=== PATIENT | male | born 1965 | race Caucasian/White ===

== ENCOUNTER 2018-06-01 02:21 | Outpatient (CLI) | payer BC, SELFPAY ==
--- NOTE | 2018-06-22 09:34 | ZIOP_ITS ---
ZIO Patch Report DATE OF DICTATION June 22, 2018 STUDY INDICATION Paroxysmal atrial fibrillation. REQUESTING PROVIDER Maco Santana D.O. FINDINGS The patient was monitored for 14 days. COMMENTS The patient was in atrial fibrillation throughout, average heart rate 117 beats per minute, andres 46 to 194 beats per minute. There were no pauses greater than 3 seconds. There was no higher degree heart block. There were 35 patient events. All events correlated with atrial fibrillation with heart rates between 64 and 172 beats per minute. FINAL INTERPRETATION Atrial fibrillation with rapid ventricular response, symptomatic. Jaron Vargas M.D. EFREN/reinaldo T - 06/22/2018
== END 2018-06-01 02:41 ==
PROVIDERS: PCP Emergency Medicine; Visit Provider Emergency Medicine
DX: I47.2 Ventricular tachycardia (principal)
CPT/HCPCS: 93225

== ENCOUNTER 2019-05-18 06:11 | Inpatient (IN) | payer BC, SELFPAY ==
[2019-05-18] VITALS (81 sets, daily range): BP systolic 99–167; BP diastolic 56–94; PULSE 41–146; RESP 11–53; TEMP 36.7–37.2; O2SAT 94–100
[2019-05-18] MEDS: dilTIAZem 25 MG/5 ML VIAL 10 MG IVP ×2 (06:53→11:35)
[2019-05-18] MEDS: Normal Saline 1,000 ML 1000 ML IV (06:54)
[2019-05-18 06:56] LABS: HCT 50.1 % (40.0-50.0); HGB 17.3 g/dL (13.5-17.5); Lymphocytes % 27.9; Mean Corp. HGB Concentration 34.5 g/dL (32.0-36.0); Mean Corpuscular Hemoglobin 31.7 pg (27.0-33.0); Mean Corpuscular Volume 91.8 fL (80-95); Mean Platelet Volume 10.1 fL (8.0-11.0); Neutrophils % 63.3; Platelet Count 284 x1000/uL (130-400); RBC 5.46 m/cumm (4.50-6.00); RBC Distribution Width 13.5 % (11.8-14.1); White Blood Cell Count 7.64 k/cumm (4.4-10.8)
--- NOTE | 2019-05-18 06:56 | W.ED.GENAD ---
Discharge Plan Disposition Patient Disposition: [facility] INPATIENT Condition: Stable Discharge Details Chief Complaint: Dizzy/Sync Clinical Impression: Rapid atrial fibrillation Admit Date/Time: 05/18/19 11:43 Admit Provider: Zeke Marin Attending Provider: Zeke Marin Primary Care Provider: Maco Santana ED Provider: Shayne Bales Discharge Data Discharge Date/Time-TO BE ENTERED AT DEPARTURE: 05/18/19 14:20 Medical Decision Making <Frank Redd MD - Last Filed: 05/18/19 19:56> Patient arrives status post syncopal event in rapid A. fib. He has had rates as high as 150 here. He has had rates at 80 as well. He has never had syncope prior. He is status post ablation on the . IV in place, will give a liter bolus. He typically takes his diltiazem long-acting at 10 AM. We will give him 10 mg IV and give him his morning dose of oral Cardizem here. He denies striking his head but he had syncope and found himself on the floor when he came to. He is on Xarelto. Will obtain head CT. Complains of shortness of breath but has normal respiratory rate and pulse oximetry. Will obtain chest x-ray. He is on Xarelto doubt PE. 7:45 - Labs are unremarkable. Potassium just a little low. Replaced orally. Head CT is negative. CXR with some peribronchial cuffing otherwise normal. Heart rate mostly below 100 but just go the oral diltiaizem. Will sign over to Dr. Bales for follow up troponin as well as to contact Dr. Liz after 8 am when office opens. Medical Records Medical records reviewed: Yes I reviewed the patient's medical records. Lab Data Lab results reviewed: Yes I reviewed the patient's lab results. ECG Data Attestation: I personally reviewed and interpreted this ECG (s) as follows: Prior ECG tracings: available for review Interpretation: Atrial fibrillation at a rate of 112. Left axis. Normal intervals. Nonspecific ST changes. Unchanged from previous. <Shayne Bales MD - Last Filed: 05/18/19 15:18> Received signout from Dr. Redd. Please see his note regarding initial presentation, exam, plan of care. Patient with persistently elevated heart rate, requiring ongoing ministration of diltiazem. Repeat troponin was negative. I discussed the case with Dr. Seo, at the [facility], on-call for Dr. Liz. He agrees with ongoing parenteral diltiazem for rate control, may consider adding beta-connie if needed. He states that the chest discomfort is likely due to mild pericarditis secondary to recent procedure and that the patient benefit from administration of Toradol. We will admit for further rate control. HPI <Frank Redd MD - Last Filed: 05/18/19 19:56> General Date/Time Provider Initiated Documentation: 05/18/19 06:32. Limitations to Documentation: no limitations. Information obtained by: patient, family, RN notes reviewed and old records reviewed. HPI Narrative: Patient presents to ED after syncopal event this morning. Patient has history of atrial fibrillation. He underwent a second ablation on the of this month. He has had short periods of A. fib since the ablation. Last night he went back into atrial fibrillation and remained there. He eventually was able to fall asleep. He got up early this morning to go to the bathroom. He was urinating when he became very dizzy, lightheaded, nauseated. He was able to sit down on the toilet but subsequently passed out and woke up on the floor. He has been experiencing some chest discomfort since the ablation. Does not really think it worse or different. He did feel short of breath and continues to feel a little short of breath to some degree since this morning. He has noticed a little bit of tingling in the left arm but not really pain per se. He denies headache. He does not think he struck his head when he fell off the toilet but is not sure. He has no neck pain. He is been eating and drinking fine. He has had no vomiting. There has been no fever. He has had atrial fibrillation for the last 5 years on and off. He has undergone 2 ablations with the second one being on the . He has never had syncope in relation to A. fib previously. They continued him on his diltiazem and Xarelto status post ablation. Related Data Home Medications Medication Instructions Recorded Confirmed hjhxhfvt-rwei-hxqyza-hyalur ac 2 cap PO DAILY cap 02/15/13 05/18/19 multivitamin 1 ea PO DAILY tab 02/15/13 05/18/19 rivaroxaban [Xarelto] 20 mg PO DAILY tab-cap NS 04/01/18 05/18/19 diltiazem HCl 240 mg PO DAILY 05/18/19 05/18/19 pantoprazole 40 mg PO DAILY 05/18/19 05/18/19 Allergies Allergy/AdvReac Type Severity Reaction Status Date / Time atorvastatin calcium AdvReac Unknown Myalgias Verified 05/18/19 06:28 [From Lipitor] WALNUT Allergy Unknown Uncoded 05/18/19 06:28 General Stated Complaint: Dizzy/Sync GEORGE: 2 Review of Systems <Frank Redd MD - Last Filed: 05/18/19 19:56> Review of Systems Narrative: 06/12 Review of Systems completed and is negative except as stated above in HPI (Systems reviewed: Const, Eyes, ENT, Resp, CV, GI, , MSK, Skin, Neuro) PFSH <Frank Redd MD - Last Filed: 05/18/19 19:56> Medical History Atrial fibrillation (Chronic) Colon polyps GERD (gastroesophageal reflux disease) Hemorrhoids Hyperlipidemia Hypertension Metabolic syndrome Obesity (BMI 30-39.9) Surgical History Colonoscopy - IV Sedation 2001, 2007-[facility] S/P ablation of atrial fibrillation (Acute) x2 S/P ORIF (open reduction internal fixation) fracture (Acute) Tonsillectomy 208 n/l Family History Mother Essential hypertension Neoplasm LIVER Father Diabetes Brother No problems noted. Brother No problems noted. Grandfather Neoplasm Grandmother No problems noted. Son Depression Social History Smoking/Tobacco Use Status: Former Tobacco Use Alcohol Intake: current Alcohol Intake frequency: holidays/special occasions only Alcohol type: beer Drug use: Never Substance use type: does not use Do you feel safe at home: Yes Do you feel safe in your relationship?: Yes Exam <Frank Redd MD - Last Filed: 05/18/19 19:56> Narrative Exam Narrative: Vitals: Afebrile. Tachycardic but normal blood pressure and normal pulse oximetry on room air. Const: WDWN male in NAD. HEENT: NC/AT. Normal facial exam. Eyes: Normal conjunctiva and sclera. Neck: Supple. Trachea midline. Normal ROM. Lungs: Normal respiratory effort. Lungs are clear. Cor: Irr/Irr without murmur/gallop, tachy. Good radial pulses. GI: Soft. NT/ND. No guarding or rebound. Neuro: A+O x 3. CN grossly in tact. Normal strength, sensation, mental status, speech. Ext: No C/C/E. No deformity or tenderness. Skin: Warm and dry without rash. Course <Frank Redd MD - Last Filed: 05/18/19 19:56> Vital Signs Vital signs: Vital Signs Respiratory Rate 14 05/18/19 06:08 Blood Pressure 112/94 H 05/18/19 06:08 Pulse Oximetry 100 05/18/19 06:08 Pulse 105 H 05/18/19 06:53 Pulse 82 05/18/19 06:20 Respiratory Rate 13 05/18/19 06:20 Respiratory Effort Short of Breath 05/18/19 06:33 Respiratory Depth Normal 05/18/19 06:33 Respiratory Pattern Normal 05/18/19 06:33 Blood Pressure 130/85 05/18/19 06:53 Blood Pressure Mean 98 05/18/19 06:08 Blood Pressure Position Supine 05/18/19 06:14 Pulse Oximetry 99 05/18/19 06:20 Oxygen Delivery Method Room Air 05/18/19 06:14 Oxygen Flow Rate 0 05/18/19 06:14 Pain Level 5 05/18/19 06:14 Sign Out <Frank Redd MD - Last Filed: 05/18/19 19:56> Sign Out Data: Sign Out Comment: pending second troponin and discussion with EPS buyer tobacco head, Dr. Shalonda Jacques updated by Frank Redd MD at 05/18/19 07:46
[2019-05-18 06:57] LABS: Abs Immature Grans 0.03 k/cumm (0.0-0.09); Absolute Basophil Count 0.03 k/cumm (0.0-0.2); Absolute Eosinophil Count 0.09 k/cumm (0.0-0.7); Absolute Lymphocyte Count 2.13 k/cumm (1.2-3.4); Absolute Monocyte Count 0.52 k/cumm (0.11-0.7); Absolute Neutrophil Count 4.84 k/cumm (1.2-6.7); Basophils % 0.4; Eosinophils % 1.2; Immature Grans % 0.4; Monocytes % 6.8
--- NOTE | 2019-05-18 06:58 | DI.RAD_ITS ---
EXAM: XR CHEST 2V PA LATERAL INDICATION: SOB. COMPARISON: CHEST 2 VIEWS PA,LAT from 02/24/2017 TECHNIQUE: 2D digital imaging was performed. FINDINGS: The lungs are well expanded and free of infiltrate. There is no evidence of a pleural effusion. The heart is within normal limits in size. The hilar structures, mediastinum and tracheal air column are intact. IMPRESSION: No evidence of acute cardiopulmonary disease.
[2019-05-18] MEDS: dilTIAZem CD 120 MG CAPCR 240 MG PO (07:08)
[2019-05-18 07:13] LABS: ALT 44 U/L (16-63); AST 19 U/L (15-37); Albumin 3.7 g/dL (3.4-5.0); Alkaline Phosphatase 79 U/L (46-116); Anion Gap 11.5 mmol/L (3-11); BUN 20 mg/dL (7-18); Bilirubin, Total 0.9 mg/dL (0.2-1.0); CO2 25.5 mmol/L (21.0-32.0); CREATININE 0.99 mg/dL (0.70-1.30); Calcium 8.8 mg/dL (8.5-10.1); Chloride 106 mmol/L (98-107); Glucose 131 mg/dL (70-100); Magnesium 2.1 mg/dL (1.8-2.4); Potassium 3.4 mmol/L (3.5-5.1); Sodium 143 mmol/L (136-145); Total Protein 7.1 g/dL (6.4-8.2)
--- NOTE | 2019-05-18 07:15 | DI.CT_ITS ---
EXAM: CT HEAD WO CLINICAL HISTORY: Syncope, ON XARELTO TECHNIQUE: A noncontrast enhanced cranial CT was performed. COMPARISON: No exams were available for comparison FINDINGS: There is no evidence of an intra or extra-axial hemorrhage. There is no evidence of a mass. The olegario tricles are normal. There is no skull fracture. Paranasal sinuses are intact. There is no evidence o f a mastoid effusion. IMPRESSION: No acute intracranial abnormality is demonstrated.
[2019-05-18 07:16] LABS: Troponin I < 0.05 ng/mL (0.00-0.06)
--- NOTE | 2019-05-18 07:24 | DI.VRAD_ITS ---
PROCEDURE INFORMATION: Exam: CT Head Without Contrast Exam date and time: 05/18/2019 7:13 AM Clinical history: 53 years old, male; Syncope and collapse; Additional info: Syncope. PT came to on the floor TECHNIQUE: Imaging protocol: Computed tomography of the head without contrast. Radiation optimization: All CT scans at this facility use at least one of these dose optimization techniques: automated exposure control; mA and/or kV adjustment per patient size (includes targeted exams where dose is matched to clinical indication); or iterative reconstruction. COMPARISON: No relevant prior studies available. FINDINGS: Brain: Normal. No hemorrhage. Unremarkable white matter. No mass effect. Ventricles: Normal. No ventriculomegaly. Bones/joints: Unremarkable. No acute fracture. Sinuses: Visualized sinuses are unremarkable. No fluid levels. Mastoid air cells: Visualized mastoid air cells are well aerated. Soft tissues: Unremarkable. IMPRESSION: No acute intracranial abnormality. Dictated and Authenticated by: Elkin Valenzuela MD. Ordering:CLOTILDE Marie MD
--- NOTE | 2019-05-18 07:28 | DI.VRAD_ITS ---
PROCEDURE INFORMATION: Exam: XR Chest, 2 Views Exam date and time: 05/18/2019 6:59 AM Clinical history: 53 years old, male; Shortness of breath; Prior surgery; Surgery date: <1 month; Surgery type: Ablation; Patient HX: PT; Additional info: Syncope. PT came to on the floor, in active afib TECHNIQUE: Imaging protocol: XR of the chest Views: 2 views. COMPARISON: CR CHEST 2 VIEWS PA,LAT 02/24/2017 10:20 AM FINDINGS: Lungs: Peribronchial cuffing is present which is nonspecific, and which may reflect acute or chronic bronchial inflammation. Alternatively, this may reflect an element of reactive airways disease. Pleural space: Unremarkable. No pleural effusion. No pneumothorax. Heart/Mediastinum: Unremarkable. No cardiomegaly. Bones/joints: Unremarkable. IMPRESSION: Nonspecific peribronchial cuffing. Dictated and Authenticated by: Elkin Valenzuela MD. Ordering:CLOTILDE Marie MD
[2019-05-18] MEDS: Potassium Chloride 20 MEQ TABCR PO (07:32)
[2019-05-18] MEDS: dilTIAZem 25 MG/5 ML VIAL 5 MG IVP (09:00)
[2019-05-18 09:55] LABS: Troponin I < 0.05 ng/mL (0.00-0.06)
[2019-05-18] MEDS: dilTIAZem 125 MG in Normal Saline 100 ML IV (11:56)
[2019-05-18] MEDS: Ketorolac 15 MG/ML VIAL IVP (12:10)
[2019-05-18] MEDS: LORazepam 2 MG/ML VIAL 1 MG IVP (14:14)
--- NOTE | 2019-05-18 14:47 | DI.CT_ITS ---
EXAM: CT ABDOMEN WO/W CLINICAL HISTORY: Evaluation of Adrenal Adenoma. TECHNIQUE: CT EXAMINATION THE ABDOMEN WAS PERFORMED PRIOR TO AND FOLLOWING INTRAVENOUS INFUSION OF 1 00 CC OF OMNIPAQUE 350. COMPARISON: No exams were available for comparison FINDINGS: IMAGES OBTAINED THROUGH THE LUNG BASES ARE UNREMARKABLE. LIVER AND SPLEEN APPEAR NORMAL. GALLBLADDE R AND BILE DUCTS ARE CT NORMAL. PANCREAS APPEARS NORMAL. ABDOMINAL AORTA IS OF NORMAL DIAMETER. FRENCH OR BRANCH VESSELS APPEAR NORMAL. TINY FAT-CONTAINING UMBILICAL HERNIA NOTED. NO ABDOMINAL OR PELVIC ADENOPATHY. INCIDENTAL SMALL POSTERIOR LEFT RENAL CYST NOTED. OTHERWISE THE KIDNEYS ARE UNREMARKABLE. LEFT ADRE NALS UNREMARKABLE. THERE IS 3 CM IN DIAMETER WELL-CIRCUMSCRIBED ROUNDED RIGHT ADRENAL MASS. THIS HAS A MEAN ATTENUATION OF APPROXIMATELY -10 HOUNSFIELD UNITS ON NONCONTRAST EXAMINATION AND SHOWS MINIMAL HOMOGENEOUS POST CONTRAST ENHANCEMENT. THE FINDINGS DESCRIBED ARE CONSISTENT WITH ADRENAL ADENOMA. NO OTHER SIGNI FICANT FINDINGS. IMPRESSION: FINDINGS CONSISTENT WITH 3 CM RIGHT ADRENAL ADENOMA. NO ADDITIONAL FINDINGS
[2019-05-18] MEDS: Omnipaque 350 MG/ML 100 ML BTL IJ (14:48)
--- NOTE | 2019-05-18 15:56 | W.PM.HP.N ---
Date of service: 05/18/19 Time of Service: 15:58 Assessment and Plan Assessment and plan (1) Paroxysmal atrial fibrillation: Status: Chronic Assessment and plan: Recurrent, paroxysmal AFib, despite 2 prior ablations with last occuring on 05/10. Rate has been difficult to control. - Admit to ICU and maintain on Dilt gtt, administer oral Cardizem, and consider addition of BB with wean of drip as able. - Currently on anticoagulation with Rivaroxaban. - Check urinalysis and TSH. CXR negative for acute pathology, and patient not hypoxic. Also denies stimulants. - Mention of adrenal adenoma - very likely benign incidentiloma on prior imaging. However, given current symptoms and recurrent nature of patient's Afib despite attempts at ablation, recommend further work-up as below. - Given obesity and body habitus strongly urged patient to lose weight and consider outpatient sleep study as well. (2) Adrenal adenoma: Status: Acute Assessment and plan: Due to current symptoms of difficult to control and recurrent Afib, and given patient's relative young age, will attempt to rule out a functioning adenoma that may be responsible for patient's symptoms. - Rule out Primary Hypoaldo state - patient does have some mild hypokalemia and HTN, but neither significant. Will check plasma renin and Aldosterone. - Consider Diagnosis of Pheochromocytoma with serum Fractionated Metanephrines. - Clinically does not appear Cushingoid, but does have a history of HTN and obesity, will however check 24 hour Urinary free cortisol, and consider dexamethasone suppression test. (3) DVT prophylaxis: Status: Acute Assessment and plan: On chronic anticoagulation with Rivaroxaban. Continue PPI for GI prophylaxis as well. History of Present Illness History of Present Illness Chief Complaint: Recurrent Afib, Syncope Narrative: Pleasant 53 year old man with a prior history of recurrent Paroxysmal Afib, s/p ablation X2, being admitted from [facility] Emergency Department on 05/18 with a diagnosis of Afib and Syncope. Mr. Peter has history of PAF on chronic anticoagulation and diagnosed 5 years ago. He reports that this has been difficult to control and symptomatic, especially at night. He has undergone 2 attempts at ablation, the first occuring in September of this year, and the next just last week at [facility] by Dr. Elkin Liz. The patient apparently had onset of symptoms of recurrent Afib at dinner time last night, but the discomfort abated somewhat. However, by bedtime he became uncomfortable and symptomatic again, and during his second trip to the bathroom to urinate he experienced a syncopal episode without injury - he reportedly sat down on the toilet, then slid off. Work-up in the ED was remarkable for Hypokalemia, but otherwise negative. CT of the head and CXR were also unremarkable. He was however found to be in AFib with RVR. The patient denies any CP or other discomfort currently. He was administered boluses of IV Cardizem, then administered his oral Dilt while in the ED, but without success. At that time he was referred for admission for further evaluation and treatment. The patient's other medical history includes mention of CAD, but with a negative reported C in 2000, GERD, Diverticulosis, Obesity, and HTN. There is also note of an Adrenal Adenoma by records. Review of Systems Review of Systems ROS Unobtainable: All systems reviewed & are unremarkable except as noted in HPI and below PFSH Medical History Atrial fibrillation (Chronic) Colon polyps GERD (gastroesophageal reflux disease) Hemorrhoids Hyperlipidemia Hypertension Metabolic syndrome Obesity (BMI 30-39.9) Surgical History Colonoscopy - IV Sedation 2001, 2007-Jesus Morse S/P ablation of atrial fibrillation (Acute) x2 S/P ORIF (open reduction internal fixation) fracture (Acute) Tonsillectomy 208 n/l Family History Mother Essential hypertension Neoplasm LIVER Father Diabetes Brother No problems noted. Brother No problems noted. Grandfather Neoplasm Grandmother No problems noted. Son Depression Social History Smoking/Tobacco Use Status: Former Tobacco Use Alcohol Intake: current Alcohol Intake frequency: holidays/special occasions only Alcohol type: beer Drug use: Never Substance use type: does not use Do you feel safe at home: Yes Do you feel safe in your relationship?: Yes Meds Home Medications and Allergies Home Medications Medication Instructions Recorded Confirmed Type bsmpqwon-hfoe-itttce-hyalur ac 2 cap PO DAILY cap 02/15/13 05/18/19 History multivitamin 1 ea PO DAILY tab 02/15/13 05/18/19 History rivaroxaban [Xarelto] 20 mg PO DAILY tab-cap NS 04/01/18 05/18/19 History diltiazem HCl 240 mg PO DAILY 05/18/19 05/18/19 History pantoprazole 40 mg PO DAILY 05/18/19 05/18/19 History Allergies Allergy/AdvReac Type Severity Reaction Status Date / Time atorvastatin calcium AdvReac Unknown Myalgias Verified 05/18/19 06:28 [From Lipitor] WALNUT Allergy Unknown Uncoded 05/18/19 06:28 Exam Narrative Exam Narrative: General: Patient appears comfortable, AAOX3, NAD Neck: Supple CV: Irregular and tachycardic, S1S2, No rubs, murmurs, or gallops. Pulmonary: Clear to auscultation bilaterally, no crackles, wheezing, or rhonchi Abdomen: + Bowel Sounds, soft, nontender, nondistended Vascular: No lower extremity edema Neurologic: CN II-XII grossly intact. No focal deficits. Psych: Normal mood and affect. Results Imaging Abdomen CT scan report/results: report reviewed and image reviewed Additional studies: Exam(s) a CT:CT abdomen wo/w EXAM: CT ABDOMEN WO/W CLINICAL HISTORY: Evaluation of Adrenal Adenoma. TECHNIQUE: CT EXAMINATION THE ABDOMEN WAS PERFORMED PRIOR TO AND FOLLOWING INTRAVENOUS INFUSION OF 100 CC OF OMNIPAQUE 350. COMPARISON: No exams were available for comparison FINDINGS: IMAGES OBTAINED THROUGH THE LUNG BASES ARE UNREMARKABLE. LIVER AND SPLEEN APPEAR NORMAL. GALLBLADDER AND BILE DUCTS ARE CT NORMAL. PANCREAS APPEARS NORMAL. ABDOMINAL AORTA IS OF NORMAL DIAMETER. MAJOR BRANCH VESSELS APPEAR NORMAL. TINY FAT-CONTAINING UMBILICAL HERNIA NOTED. NO ABDOMINAL OR PELVIC ADENOPATHY. INCIDENTAL SMALL POSTERIOR LEFT RENAL CYST NOTED. OTHERWISE THE KIDNEYS ARE UNREMARKABLE. LEFT ADRENALS UNREMARKABLE. THERE IS 3 CM IN DIAMETER WELL-CIRCUMSCRIBED ROUNDED RIGHT ADRENAL MASS. THIS HAS A MEAN ATTENUATION OF APPROXIMATELY -10 HOUNSFIELD UNITS ON NONCONTRAST EXAMINATION AND SHOWS MINIMAL HOMOGENEOUS POST CONTRAST ENHANCEMENT. THE FINDINGS DESCRIBED ARE CONSISTENT WITH ADRENAL ADENOMA. NO OTHER SIGNIFICANT FINDINGS. IMPRESSION: FINDINGS CONSISTENT WITH 3 CM RIGHT ADRENAL ADENOMA. NO ADDITIONAL FINDINGS --------- Exam(s) a RAD:XR chest 2V PA & lateral EXAM: XR CHEST 2V PA LATERAL INDICATION: SOB. COMPARISON: CHEST 2 VIEWS PA,LAT from 02/24/2017 TECHNIQUE: 2D digital imaging was performed. FINDINGS: The lungs are well expanded and free of infiltrate. There is no evidence of a pleural effusion. The heart is within normal limits in size. The hilar structures, mediastinum and tracheal air column are intact. IMPRESSION: No evidence of acute cardiopulmonary disease. --------- Exam(s) a CT:CT head wo EXAM: CT HEAD WO CLINICAL HISTORY: Syncope, ON XARELTO TECHNIQUE: A noncontrast enhanced cranial CT was performed. COMPARISON: No exams were available for comparison FINDINGS: There is no evidence of an intra or extra-axial hemorrhage. There is no evidence of a mass. The ventricles are normal. There is no skull fracture. Paranasal sinuses are intact. There is no evidence of a mastoid effusion. IMPRESSION: No acute intracranial abnormality is demonstrated. Labs Result diagrams: 05/18/19 06:31 05/18/19 06:31 Labs: Laboratory Results - last 24 hr 05/18/19 05/18/19 05/18/19 06:31 06:31 09:30 WBC 7.64 RBC 5.46 Hgb 17.3 Hct 50.1 H MCV 91.8 MCH 31.7 MCHC 34.5 RDW 13.5 Plt Count 284 MPV 10.1 Immature Gran % 0.4 Neutrophils % 63.3 Lymphocytes % 27.9 Monocytes % 6.8 Eosinophils % 1.2 Basophils % 0.4 Absolute Neutrophils 4.84 Absolute Lymphocytes 2.13 Absolute Monocytes 0.52 Absolute Eosinophils 0.09 Absolute Basophils 0.03 Sodium 143 Potassium 3.4 L Chloride 106 Carbon Dioxide 25.5 Anion Gap 11.5 H BUN 20 H Creatinine 0.99 Estimated GFR/1.73 m2 >= 60.00 Glucose 131 H Calcium 8.8 Magnesium 2.1 Total Bilirubin 0.9 AST 19 ALT 44 Alkaline Phosphatase 79 Troponin I < 0.05 < 0.05 Total Protein 7.1 Albumin 3.7 Ur Collection Duration Ur 24 Hour Volume Ur Creatinine Concen Ur Free Cortisol 24 Hr U Metanephrine/Creat U Normetanephrine/Creat U Tot Metanephri/Creat 05/18/19 05/18/19 15:30 15:30 WBC RBC Hgb Hct MCV MCH MCHC RDW Plt Count MPV Immature Gran % Neutrophils % Lymphocytes % Monocytes % Eosinophils % Basophils % Absolute Neutrophils Absolute Lymphocytes Absolute Monocytes Absolute Eosinophils Absolute Basophils Sodium Potassium Chloride Carbon Dioxide Anion Gap BUN Creatinine Estimated GFR/1.73 m2 Glucose Calcium Magnesium Total Bilirubin AST ALT Alkaline Phosphatase Troponin I Total Protein Albumin Ur Collection Duration Cancelled Ur 24 Hour Volume Cancelled Ur Creatinine Concen Cancelled Ur Free Cortisol 24 Hr Cancelled U Metanephrine/Creat Cancelled U Normetanephrine/Creat Cancelled U Tot Metanephri/Creat Cancelled Last Vital Signs Temp 36.8 C 05/18/19 15:20 Pulse 83 05/18/19 15:01 Resp 18 05/18/19 15:01 BP 117/87 05/18/19 15:01 Pulse Ox 98 05/18/19 15:01
[2019-05-18 16:07] LABS: TSH (W/Ref FT4) 1.72 uIU/mL (0.36-3.74)
[2019-05-18] MEDS: Potassium Chloride 20 MEQ TABCR 40 MEQ PO (16:08)
[2019-05-18 16:10] LABS: Troponin I < 0.05 ng/mL (0.00-0.06)
[2019-05-18] MEDS: Pantoprazole 40 MG TABCR PO (19:26)
[2019-05-18] MEDS: Rivaroxaban 10 MG TABLET 20 MG PO (19:26)
[2019-05-18 22:35] LABS: Troponin I < 0.05 ng/mL (0.00-0.06)
[2019-05-19] VITALS (50 sets, daily range): BP systolic 98–137; BP diastolic 47–106; PULSE 49–152; RESP 11–28; TEMP 35.8–36.8; O2SAT 96–98
[2019-05-19] MEDS: dilTIAZem 125 MG in Normal Saline 100 ML 7.5 MG IV (05:05)
[2019-05-19 07:12] LABS: Abs Immature Grans 0.02 k/cumm (0.0-0.09); Absolute Basophil Count 0.02 k/cumm (0.0-0.2); Absolute Eosinophil Count 0.11 k/cumm (0.0-0.7); Absolute Lymphocyte Count 1.61 k/cumm (1.2-3.4); Absolute Monocyte Count 0.57 k/cumm (0.11-0.7); Absolute Neutrophil Count 4.64 k/cumm (1.2-6.7); Basophils % 0.3; Eosinophils % 1.6; HCT 47.8 % (40.0-50.0); HGB 16.5 g/dL (13.5-17.5); Immature Grans % 0.3; Lymphocytes % 23.1; Mean Corp. HGB Concentration 34.5 g/dL (32.0-36.0); Mean Corpuscular Hemoglobin 31.9 pg (27.0-33.0); Mean Corpuscular Volume 92.3 fL (80-95); Mean Platelet Volume 9.9 fL (8.0-11.0); Monocytes % 8.2; Neutrophils % 66.5; Platelet Count 253 x1000/uL (130-400); RBC 5.18 m/cumm (4.50-6.00); RBC Distribution Width 13.5 % (11.8-14.1); White Blood Cell Count 6.97 k/cumm (4.4-10.8)
[2019-05-19 07:22] LABS: Anion Gap 10.6 mmol/L (3-11); BUN 11 mg/dL (7-18); CO2 25.4 mmol/L (21.0-32.0); CREATININE 0.87 mg/dL (0.70-1.30); Calcium 8.8 mg/dL (8.5-10.1); Chloride 108 mmol/L (98-107); Glucose 94 mg/dL (70-100); Magnesium 1.9 mg/dL (1.8-2.4); Potassium 3.7 mmol/L (3.5-5.1); Sodium 144 mmol/L (136-145)
[2019-05-19] MEDS: Glucosamine/Chondroitin CAP 2 CAP PO (08:57)
[2019-05-19] MEDS: dilTIAZem CD 120 MG CAPCR 240 MG PO (08:57)
[2019-05-19] MEDS: Multivitamin TAB 1 TAB PO (08:57)
--- NOTE | 2019-05-19 09:00 | MERGE_ITS ---
*[facility]* *[facility]* [address] [place] [address] Date of study: 05/19/2019 Transthoracic Echocardiography M-mode, complete 2D, complete spectral Doppler, and color Doppler *STUDY CONCLUSIONS* Impressions: The patient was in atrial fibrillation throughout study. This rhythm can interfere with accurate global and segmental wall motion analysis. Summary: 1. Left ventricle: The cavity size was normal. Wall thickness was increased in a pattern of moderate to severe LVH. Systolic function was at the lower limits of normal. The estimated ejection fraction was 50-55%. Wall motion was normal; there were no regional wall motion abnormalities. 2. Right ventricle: The cavity size was at the upper limits of normal. Systolic function was normal. 3. Left atrium: The atrium was severely dilated. 4. Inferior vena cava: The vessel was patent and normal in size. The respirophasic diameter changes were in the normal range (greater than or equal to 50%), consistent with normal central venous pressure. *PATIENT PRESENTATION* Height: 180.3cm (71in ) S/D Pressure: 109 / 47 Weight: 117kg (257.5lb ) BSA: 2.46m^2 Test start time: 09:15 AM. Test stop time: 10:10 AM. CONSULTING Zeke Marin ORDERING Zeke Marin REFERRING Zeke Marin PERFORMING [facility] PRODUCT DELIVERY SPECIALIST RT Christianne Lou)(AMI)ROSALINDA *PROCEDURE DATA* Procedure information: The patient was identified by two identifiers. This study was interpreted by [facility]. Pertinent images and digital data are archived for permanent storage and are available for subsequent review. Comparison was made to the study of 11/03/2016. Study status: Routine. Transthoracic echocardiography. M-mode, complete 2D, complete spectral Doppler, and color Doppler. A Transthoracic Echocardiogram was performed. Scanning was performed from the parasternal, apical, subcostal, and suprasternal notch acoustic windows. Images were obtained using an [id number] cardiac ultrasound machine. Image quality was adequate. Study completion: The patient tolerated the procedure well. There were no complications. History: PMH: Persistent recurrent afib. *CARDIAC ANATOMY* Left ventricle: The cavity size was normal. Wall thickness was increased in a pattern of moderate to severe LVH. Systolic function was at the lower limits of normal. The estimated ejection fraction was 50-55%. Wall motion was normal; there were no regional wall motion abnormalities. Aortic valve: Trileaflet; mildly thickened leaflets. Mobility was not restricted. Doppler: Transvalvular velocity was within the normal range. There was no stenosis. There was no significant regurgitation. VTI ratio of LVOT to aortic valve: 0.94. Valve area (VTI): 3.9cm^2. Indexed valve area (VTI): 1.6cm^2/m^2. Peak velocity ratio of LVOT to aortic valve: 0.84. Valve area (Vmax): 3.5cm^2. Indexed valve area (Vmax): 1.4cm^2/m^2. Mean velocity ratio of LVOT to aortic valve: 0.87. Valve area (Vmean): 3.6cm^2. Indexed valve area (Vmean): 1.5cm^2/m^2. Mean gradient (S): 3.6mm Hg. Peak gradient (S): 5.6mm Hg. Aorta: Aortic root: The aortic root was mildly dilated. Ascending aorta: The ascending aorta was normal in size. Mitral valve: Structurally normal valve. Mobility was not restricted. Doppler: Transvalvular velocity was within the normal range. There was no evidence for stenosis. There was trivial regurgitation. Peak gradient (D): 3.4mm Hg. Left atrium: The atrium was severely dilated. Right ventricle: The cavity size was at the upper limits of normal. Systolic function was normal. Pulmonic valve: Poorly visualized. Doppler: Transvalvular velocity was within the normal range. There was no evidence for stenosis. There was no significant regurgitation. Tricuspid valve: Structurally normal valve. Doppler: Transvalvular velocity was within the normal range. There was no evidence for stenosis. There was trivial regurgitation. Pulmonary artery: Poorly visualized. Systolic pressure could not be accurately estimated. Right atrium: The atrium was dilated. Pericardium: There was no significant pericardial effusion. Systemic veins: Inferior vena cava: Well visualized. The vessel was patent and normal in size. The respirophasic diameter changes were in the normal range (greater than or equal to 50%), consistent with normal central venous pressure. Baseline ECG: Atrial fibrillation. Measurements Left ventricle Value 11/03/2016 Reference LV ID, ED, PLAX 5.5 cm 5.7 3.5 - 6.0 LV ID, ES, PLAX (H) 4.2 cm 4.0 2.1 - 4.0 LV PW thickness, ED, PLAX 1.4 cm 1.5 LV end-diastolic volume, 148 ml 1-p A2C LV ejection fraction, 1-p 50 % 52 A2C LV end-diastolic volume, 160 ml 1-p A4C LV ejection fraction, 1-p 49 % 67 A4C Ventricular septum Value 11/03/2016 Reference IVS thickness, ED, PLAX 1.7 cm 1.5 LVOT Value 11/03/2016 Reference LVOT ID, A-P 2.3 cm 2.3 LVOT area 4.2 cm^2 4 LVOT peak velocity, S 1 m/sec 0.91 LVOT mean velocity, S 0.75 m/sec LVOT VTI, S 16.0 cm 22.5 LVOT peak gradient, S 4 mm Hg LVOT mean gradient, S 2.6 mm Hg 1.9 Stroke volume (SV), LVOT 67 ml DP Stroke index (SV/bsa), 27 ml/m^2 LVOT DP Aortic valve Value 11/03/2016 Reference Aortic valve peak 1.2 m/sec velocity, S Aortic valve mean 0.9 m/sec velocity, S Aortic valve VTI, S 17.0 cm Aortic mean gradient, S 3.6 mm Hg Aortic peak gradient, S 5.6 mm Hg VTI ratio, LVOT/AV 0.94 Aortic valve area, VTI 3.9 cm^2 4.5 Velocity ratio, peak, 0.84 LVOT/AV Aortic valve area, peak 3.5 cm^2 3.7 velocity Velocity ratio, mean, 0.87 LVOT/AV Aortic valve area, mean 3.6 cm^2 velocity Aortic valve area/bsa, 1.5 cm^2/m^2 mean velocity Aorta Value 11/03/2016 Reference Aortic root ID, ED 3.9 cm 4.0 Ascending aorta ID, A-P, S 3.5 cm Left atrium Value 11/03/2016 Reference LA ID, A-P, ES 5.0 cm LA ID/bsa, A-P 2.0 cm/m^2 <=2.2 LA volume/bsa, ES, 1-p A4C 63 ml/m^2 60 LA volume, ES, 2-p 128 ml LA volume/bsa, ES, 2-p 52 ml/m^2 LA/aortic root ratio 1.26 1.42 Mitral valve Value 11/03/2016 Reference Mitral E-wave peak 0.92 m/sec 0.92 velocity Mitral peak gradient, D 3.4 mm Hg Tricuspid valve Value 11/03/2016 Reference Tricuspid regurg peak 2.2 m/sec 2.5 velocity Tricuspid peak RV-RA 19.4 mm Hg 25.2 gradient Right atrium Value 11/03/2016 Reference RA area, ES, A4C (H) 20 cm^2 27 8.3 - 19.5 Legend: (L) and (H) robbin values outside specified reference range. I have personally reviewed the images and have reviewed and edited the reported findings. Electronically signed by Nancy Douglas 05/19/2019 14:15
[2019-05-19] MEDS: Magnesium Oxide 400 MG TAB PO (11:07)
[2019-05-19] MEDS: POTASSIUM CHLORIDE 20 MEQ, POTASSIUM CHLORIDE 10 MEQ 30 MEQ PO (11:07)
--- NOTE | 2019-05-19 11:57 | PGE_ITS ---
Date of Service Date of service: 05/19/19 Time of Service: 11:57 Assessment and Plan Assessment and plan (1) Paroxysmal atrial fibrillation: Status: Chronic Assessment and plan: Recurrent, paroxysmal AFib, despite 2 prior ablations with last occuring on 05/10. Rate has been difficult to control. - Currently on anticoagulation with Rivaroxaban. - Appears to be improved on Dilt gtt. Continue home regimen of oral Cardizem, and initiate / titrate BB with plans to wean off drip as able. - Urinalysis ordered and pending. TSH normal. CXR negative for acute pathology, and patient not hypoxic. Also denies stimulants. - Mention of adrenal adenoma - very likely benign incidentiloma on prior imaging. However, given current symptoms and recurrent nature of patient's Afib despite attempts at ablation, recommend further work-up as below. - Given obesity and body habitus strongly urged patient to lose weight and consider outpatient sleep study as well. (2) Adrenal adenoma: Status: Acute Assessment and plan: Due to current symptoms of difficult to control and recurrent Afib, and given patient's relative young age, will attempt to rule out a functioning adenoma that may be responsible for patient's symptoms. - Rule out Primary Hypoaldo state - patient does have some mild hypokalemia and HTN, but neither significant. Plasma renin and Aldosterone pending. - Consider Diagnosis of Pheochromocytoma with serum Fractionated Metanephrines. - Clinically does not appear Cushingoid, but does have a history of HTN and obesity, will however check 24 hour Urinary free cortisol, and consider dexamethasone suppression test. (3) DVT prophylaxis: Status: Acute Assessment and plan: On chronic anticoagulation with Rivaroxaban. Continue PPI for GI prophylaxis as well. Subjective Subjective Interval history since last seen: Oswaldo 53 year old man with a prior history of recurrent Paroxysmal Afib, s/p ablation X2, admitted from [facility] Emergency Department on 05/18 with a diagnosis of Afib and Syncope. Mr. Peter has history of PAF on chronic anticoagulation, diagnosed 5 years ago. He reports that this has been difficult to control and symptomatic, especially at night. He has undergone 2 attempts at ablation, the first occuring in September of this year, and the next just last week at [facility] by Dr. Elkin Liz. The patient apparently had onset of symptoms of recurrent Afib at dinner time on the night of his admission, but the discomfort abated somewhat. However, by bedtime he became uncomfortable and symptomatic again, and during his second trip to the bathroom to urinate he experienced a syncopal episode without injury - he reportedly sat down on the toilet, then slid off. Work-up in the ED was remarkable for Hypokalemia, but otherwise negative. CT of the head and CXR were also unremarkable. He was however found to be in AFib with RVR, with a rate in the 150's. The patient denied any CP or other discomfort at time of exam. He was administered boluses of IV Cardizem, then administered his oral Dilt while in the ED, but without success. At that time he was initiated on cardizem gtt, and referred for admission for further evaluation and treatment. The patient's other medical history includes mention of CAD, but with a negative reported LHC in 2000, GERD, Diverticulosis, Obesity, and HTN. There is also note of an Adrenal Adenoma by records. This morning Mr. Peter reports improvement in his symptoms overall, and is rate controlled at rest by remains tachycardic with movement. He remains on a cardizem drip. No overnight events reported. Remains afebrile. Exam Narrative Exam Narrative: General: Patient appears comfortable, AAOX3, NAD Neck: Supple CV: Irregular and borderline tachycardic, S1S2, No rubs, murmurs, or gallops. Pulmonary: Clear to auscultation bilaterally, no crackles, wheezing, or rhonchi Abdomen: + Bowel Sounds, soft, nontender, nondistended Vascular: No lower extremity edema Psych: Normal mood and affect. Objective Objective Clinical Data: Abnormal lab results 05/19/19 Range/Units 06:50 Chloride 108 H (98-107) mmol/L Vital Signs Temperature 35.9 C L 05/19/19 09:00 Temperature Source Temporal Artery Scan 05/19/19 09:00 Pulse 100 H 05/19/19 09:40 Pulse 99 H 05/19/19 07:40 Respiratory Rate 20 05/19/19 09:00 Respiratory Effort Non-Labored 05/19/19 08:50 Respiratory Depth Normal 05/19/19 08:50 Respiratory Pattern Normal 05/19/19 08:50 Blood Pressure 136/90 05/19/19 11:00 Blood Pressure Mean 64 05/19/19 06:02 Blood Pressure Position Sitting 05/19/19 08:50 Pulse Oximetry 96 05/19/19 09:00 Oxygen Delivery Method Room Air 05/19/19 11:00 Oxygen Flow Rate 0 05/19/19 11:00 Pain Level 0 05/19/19 08:50 Comment 05/19/19 09:40 Intake & Output 05/18/19 05/18/19 05/19/19 11:59 23:59 11:59 Intake Total 1501.292 / 1501.292 521.500 / 521.500 Output Total 1270 / 1270 2175 / 2175 Balance 231.292 / 231.292 -1653.500 / -1653.500 Weight 117.027 kg 117.027 kg 118.4 kg Intake: IV 1051.292 / 1051.292 121.500 / 121.500 Oral 450 / 450 400 / 400 Output: Urine 1270 / 1270 2175 / 2175 Other: Urine Color Yellow Yellow Urine Appearance Clear Clear Urine Odor Normal Normal Comment Voiding to urinal for 24 hr catch. Stool Occult Blood Negative Negative Stool Size Moderate Large Stool Characteristics Soft Soft Formed Formed Brown Laboratory Results WBC 6.97 k/cumm (4.4-10.8) 05/19/19 06:50 RBC 5.18 m/cumm (4.50-6.00) 05/19/19 06:50 Hgb 16.5 g/dL (13.5-17.5) 05/19/19 06:50 Hct 47.8 % (40.0-50.0) 05/19/19 06:50 MCV 92.3 fL (80-95) 05/19/19 06:50 MCH 31.9 pg (27.0-33.0) 05/19/19 06:50 MCHC 34.5 g/dL (32.0-36.0) 05/19/19 06:50 RDW 13.5 % (11.8-14.1) 05/19/19 06:50 Plt Count 253 x1000/uL (130-400) 05/19/19 06:50 MPV 9.9 fL (8.0-11.0) 05/19/19 06:50 Immature Gran % 0.3 05/19/19 06:50 Neutrophils % 66.5 05/19/19 06:50 Lymphocytes % 23.1 05/19/19 06:50 Monocytes % 8.2 05/19/19 06:50 Eosinophils % 1.6 05/19/19 06:50 Basophils % 0.3 05/19/19 06:50 Absolute Neutrophils 4.64 k/cumm (1.2-6.7) 05/19/19 06:50 Absolute Lymphocytes 1.61 k/cumm (1.2-3.4) 05/19/19 06:50 Absolute Monocytes 0.57 k/cumm (0.11-0.7) 05/19/19 06:50 Absolute Eosinophils 0.11 k/cumm (0.0-0.7) 05/19/19 06:50 Absolute Basophils 0.02 k/cumm (0.0-0.2) 05/19/19 06:50 Sodium 144 mmol/L (136-145) 05/19/19 06:50 Potassium 3.7 mmol/L (3.5-5.1) 05/19/19 06:50 Chloride 108 mmol/L (98-107) H 05/19/19 06:50 Carbon Dioxide 25.4 mmol/L (21.0-32.0) 05/19/19 06:50 Anion Gap 10.6 mmol/L (3-11) 05/19/19 06:50 BUN 11 mg/dL (7-18) D 05/19/19 06:50 Creatinine 0.87 mg/dL (0.70-1.30) 05/19/19 06:50 Estimated GFR/1.73 m2 >= 60.00 (mL/min/1.73m2) 05/19/19 06:50 Glucose 94 mg/dL (70-100) 05/19/19 06:50 Calcium 8.8 mg/dL (8.5-10.1) 05/19/19 06:50 Magnesium 1.9 mg/dL (1.8-2.4) 05/19/19 06:50 Total Bilirubin 0.9 mg/dL (0.2-1.0) 05/18/19 06:31 AST 19 U/L (15-37) 05/18/19 06:31 ALT 44 U/L (16-63) 05/18/19 06:31 Alkaline Phosphatase 79 U/L (46-116) 05/18/19 06:31 Troponin I < 0.05 ng/mL (0.00-0.06) 05/18/19 22:03 Total Protein 7.1 g/dL (6.4-8.2) 05/18/19 06:31 Albumin 3.7 g/dL (3.4-5.0) 05/18/19 06:31 TSH 1.72 uIU/mL (0.36-3.74) 05/18/19 15:30 Ur Collection Duration Cancelled 05/18/19 15:30 Ur 24 Hour Volume Cancelled 05/18/19 15:30 Ur Creatinine Concen Cancelled 05/18/19 15:30 Ur Free Cortisol 24 Hr Cancelled 05/18/19 15:30 U Metanephrine/Creat Cancelled 05/18/19 15:30 U Normetanephrine/Creat Cancelled 05/18/19 15:30 U Tot Metanephri/Creat Cancelled 05/18/19 15:30
--- NOTE | 2019-05-19 12:49 | PDOC.CMIN ---
- If Service Date Differs Date of service: 05/19/19 Time of Service: 12:49 Care Management Initial Assess REASON FOR HOSPITALIZATION:: Recurrent Afib, Syncope PAST MEDICAL HISTORY/PAST SURGICAL HISTORY:: Past medical history: Atrial fibrillation (chronic), colon polyps, GERD (gastroesophageal reflux disease), hemorrhoids, hyperlipidemia, hypertension, metabolic syndrome, and obesity (BMI 30-39.9). Past surgical history: colonoscopy - IV sedation - 2001, 2007, s/p ablation of atrial fibrillation (acute) x 2, s/p ORIF (open reduction internal fixation) fracture (acute), tonsillectomy 208 n/l. 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 When not working, patient enjoys riding his motorcycle. He is and has four step-children who live out of the home. His spouse is his only family support. Patient is able to attend to all of his activities of daily living. CURRENT FUNCTIONAL STATUS:: Cm met with Rohit in the room, spouse is also present during assessment. Rohit engaged during assessment, answers were short and avoidant in nature. Rohit feels that he's ready to be discharged, however he continues to be monitored in the ICU. Rohit had an ablation a week ago and expresses frustration over being back in the hospital. ADVANCE DIRECTIVES:: None on file at [facility]. Has patient been provided with information about the portal?: Yes Did the patient sign up for the portal?: No (Pt states enrolled) CODE STATUS:: Full Code INSURANCE COVERAGE / FINANCIAL ISSUES:: BS CURRENT HOME/COMMUNITY SERVICES/EQUIPMENT:: None. PRIMARY CARE PHYSICIAN:: Maco Santana MD POTENTIAL DISCHARGE NEEDS:: Follow-up with primary care physician. PATIENT/FAMILY EDUCATION NEEDS:: Discharge plan, limitations, and follow-up plan of care including ask me 3 and self-management. ANTICIPATED BARRIERS TO DISCHARGE:: None. TRANSPORTATION:: will transport patient home upon discharge. PLAN:: Patient will be discharged home when medically cleared by provider. Anticipate no additional services needed at time of discharge. Spouse will transport home.
[2019-05-19] MEDS: Metoprolol 25 MG TAB PO ×2 (13:15→20:56)
--- NOTE | 2019-05-19 14:38 | CHAPLAIN ---
I had a brief visit with Rohit and his , introduced myself, explained my role and offered support. Rohit was resting in bed and is hoping to be discharged later today.
--- NOTE | 2019-05-19 15:44 | PHARADMIT ---
Admission Pharmacy Clinical Review AFIB Code Status Full Code Current Weight 118.4 kg Renally Cleared and Narrow Therapeutic Index Meds CrCl ~105 ml/min QTc Value / Action Taken QTc 480 BP Control, Fever BP 125/80, HR 85 Electrolytes reviewed all WNL DVT Prophylaxis Rivaroxaban 20mg Opiate Usage / Scheduled Bowel Regimen Ordered Plt/SCr for Heparin / Enoxaparin Plt 253 Scr 0.87 INR for Warfarin H/H stable, WBC/Bands H/H 16.5/47.8 WBC 6.97 Antibiotic appropriateness n/a Cultures and Sensitivities Surgical ABX d/c within 24 hr DM control / Insulin Dosing Heart Failure (Check EF%) (JEREMY's, B-Block, Diuretics) Diltiazem (drip, oral), metoprolol IV to PO Switch Weaning off drip as able Home Meds Reviewed Yes Home Meds Not Ordered All Comments Attempting to rule out functioning adrenal adenoma given difficult to control and recurrent afib
[2019-05-19] MEDS: Rivaroxaban 10 MG TABLET 20 MG PO (18:30)
[2019-05-19] MEDS: Pantoprazole 40 MG TABCR PO (18:30)
[2019-05-20] VITALS (64 sets, daily range): BP systolic 99–152; BP diastolic 58–92; PULSE 49–170; RESP 0–37; TEMP 35.8–36.9; O2SAT 97–99
[2019-05-20] MEDS: Metoprolol 25 MG TAB PO ×4 (04:53→22:49)
[2019-05-20 07:28] LABS: Abs Immature Grans 0.02 k/cumm (0.0-0.09); Absolute Basophil Count 0.04 k/cumm (0.0-0.2); Absolute Eosinophil Count 0.15 k/cumm (0.0-0.7); Absolute Lymphocyte Count 2.07 k/cumm (1.2-3.4); Absolute Monocyte Count 0.62 k/cumm (0.11-0.7); Basophils % 0.5; Eosinophils % 2.1; HCT 49.8 % (40.0-50.0); HGB 17.1 g/dL (13.5-17.5); Immature Grans % 0.3; Lymphocytes % 28.4; Mean Corp. HGB Concentration 34.3 g/dL (32.0-36.0); Mean Corpuscular Hemoglobin 31.7 pg (27.0-33.0); Mean Corpuscular Volume 92.2 fL (80-95); Mean Platelet Volume 10.1 fL (8.0-11.0); Monocytes % 8.5; Neutrophils % 60.2; Platelet Count 273 x1000/uL (130-400); RBC Distribution Width 13.5 % (11.8-14.1)
[2019-05-20 07:38] LABS: Anion Gap 10.4 mmol/L (3-11); BUN 12 mg/dL (7-18); CO2 26.6 mmol/L (21.0-32.0); CREATININE 0.99 mg/dL (0.70-1.30); Calcium 8.8 mg/dL (8.5-10.1); Chloride 107 mmol/L (98-107); Glucose 91 mg/dL (70-100); Magnesium 2.1 mg/dL (1.8-2.4); Potassium 3.8 mmol/L (3.5-5.1); Sodium 144 mmol/L (136-145)
--- NOTE | 2019-05-20 08:11 | PGE_ITS ---
Date of Service Date of service: 05/20/19 Time of Service: 08:11 Assessment and Plan Assessment and plan (1) Paroxysmal atrial fibrillation: Status: Chronic Assessment and plan: Rapid afib, rates difficult to control with CCB/BB. s/p 2 prior ablations with last occuring on 05/10. S/p sotalol failure in the past. Has never been tried on digoxin, amiodarone, any other antiarrhythmics. I have reached out to [facility] for further guidance - awaiting call back. -for now, continue titrating CCB/BB. -will need sleep study as outpatient. (2) Adrenal adenoma: Status: Acute Assessment and plan: Undergoing workup for a functional adrenal adenoma, which could be triggering the high heart rates. Urine/plasma studies sent out. (3) Chest pain: Status: Resolved Assessment and plan: Likely post-procedure pericarditis/inflammation. Troponins have been negative. No evidence of pericardial effusion on echo. No CP at this time - monitor. (4) HTN (hypertension): Status: Chronic Assessment and plan: Monitor BP's while CCB/BB are being adjusted (5) DVT prophylaxis: Status: Acute Assessment and plan: On chronic anticoagulation with Rivaroxaban. (6) Discharge planning issues: Status: Acute Assessment and plan: Full code May require transfer to a tertiary care facility depending on my conversation with [facility]. The patient is agreeable. For now, continue monitoring in the ICU. Subjective Subjective Interval history since last seen: HR 90-120's at rest. While sitting, he seems to feel better than when he tries to get up. Even sitting, he felt whoozy and nauseated after getting his second dose of metoprolol today. Denies dizziness at the time of my talking to the patient at 11:56. When ambulating, his HR went up to 160's, and he did feel some shortness of breath. CP was 2/10 this morning, described it as squeezing', not radiating, worse with activity, associated with worsening shortness of breath. This is definitely worse when the heart rate goes up. He is not having any of the chest pain right now. Diltiazem gtt was turned off at 4 pm yesterday. Exam Narrative Exam Narrative: General: very pleasant middle-aged male, A&Ox3, sitting up comfortably in bed HEENT: EOMI, MMM Heart: irregularly irregular rhythm, tachycardic, heart sounds appear distant Lungs: CTAB GI: abdomen is soft, nontender, nondistended Extremities: no e/c/c BLE's Objective Objective Clinical Data: Vital Signs Temperature 36.5 C 05/19/19 22:55 Temperature Source Temporal Artery Scan 05/19/19 22:55 Pulse 56 L 05/20/19 04:48 Pulse 117 H 05/20/19 07:30 Respiratory Rate 10 L 05/20/19 07:30 Respiratory Effort Non-Labored 05/20/19 04:18 Respiratory Depth Normal 05/20/19 04:18 Respiratory Pattern Normal 05/20/19 04:18 Blood Pressure 137/82 05/20/19 04:48 Blood Pressure Mean 95 05/20/19 04:48 Blood Pressure Position Sitting 05/19/19 15:45 Pulse Oximetry 99 05/20/19 01:36 Oxygen Delivery Method Room Air 05/20/19 01:36 Oxygen Flow Rate 0 05/20/19 01:36 Pain Level 0 05/19/19 22:55 Comment 05/19/19 20:50 Intake & Output 05/19/19 05/19/19 05/20/19 11:59 23:59 11:59 Intake Total 971.500 / 2244.167 1272.667 / 2244.167 100 / 100 Output Total 2175 / 4125 1950 / 4125 1050 / 1050 Balance -1203.500 / -1880.833 -677.333 / -1880.833 -950 / -950 Weight 118.4 kg 118.4 kg Intake: IV 121.500 / 194.167 72.667 / 194.167 Oral 850 / 2050 1200 / 2050 100 / 100 Output: Urine 2175 / 4125 1950 / 4125 1050 / 1050 Other: Urine Color Yellow Yellow Yellow Urine Appearance Clear Clear Clear Urine Odor Normal Normal Comment Voiding to urinal for 24 hr catch. Pt voiding to urinal independently. 24 [address] study in [address] currently Pt voiding to urinal independently. [address] in [address] currently. Stool Occult Blood Negative Stool Size Large Stool Characteristics Soft Formed Brown Voiding Methods Urinal Urinal Laboratory Results WBC 7.30 k/cumm (4.4-10.8) 05/20/19 06:20 RBC 5.40 m/cumm (4.50-6.00) 05/20/19 06:20 Hgb 17.1 g/dL (13.5-17.5) 05/20/19 06:20 Hct 49.8 % (40.0-50.0) 05/20/19 06:20 MCV 92.2 fL (80-95) 05/20/19 06:20 MCH 31.7 pg (27.0-33.0) 05/20/19 06:20 MCHC 34.3 g/dL (32.0-36.0) 05/20/19 06:20 RDW 13.5 % (11.8-14.1) 05/20/19 06:20 Plt Count 273 x1000/uL (130-400) 05/20/19 06:20 MPV 10.1 fL (8.0-11.0) 05/20/19 06:20 Immature Gran % 0.3 05/20/19 06:20 Neutrophils % 60.2 05/20/19 06:20 Lymphocytes % 28.4 05/20/19 06:20 Monocytes % 8.5 05/20/19 06:20 Eosinophils % 2.1 05/20/19 06:20 Basophils % 0.5 05/20/19 06:20 Absolute Neutrophils 4.40 k/cumm (1.2-6.7) 05/20/19 06:20 Absolute Lymphocytes 2.07 k/cumm (1.2-3.4) 05/20/19 06:20 Absolute Monocytes 0.62 k/cumm (0.11-0.7) 05/20/19 06:20 Absolute Eosinophils 0.15 k/cumm (0.0-0.7) 05/20/19 06:20 Absolute Basophils 0.04 k/cumm (0.0-0.2) 05/20/19 06:20 Sodium 144 mmol/L (136-145) 05/20/19 06:20 Potassium 3.8 mmol/L (3.5-5.1) 05/20/19 06:20 Chloride 107 mmol/L (98-107) 05/20/19 06:20 Carbon Dioxide 26.6 mmol/L (21.0-32.0) 05/20/19 06:20 Anion Gap 10.4 mmol/L (3-11) 05/20/19 06:20 BUN 12 mg/dL (7-18) 05/20/19 06:20 Creatinine 0.99 mg/dL (0.70-1.30) 05/20/19 06:20 Estimated GFR/1.73 m2 >= 60.00 (mL/min/1.73m2) 05/20/19 06:20 Glucose 91 mg/dL (70-100) 05/20/19 06:20 Calcium 8.8 mg/dL (8.5-10.1) 05/20/19 06:20 Magnesium 2.1 mg/dL (1.8-2.4) 05/20/19 06:20 Total Bilirubin 0.9 mg/dL (0.2-1.0) 05/18/19 06:31 AST 19 U/L (15-37) 05/18/19 06:31 ALT 44 U/L (16-63) 05/18/19 06:31 Alkaline Phosphatase 79 U/L (46-116) 05/18/19 06:31 Troponin I < 0.05 ng/mL (0.00-0.06) 05/18/19 22:03 Total Protein 7.1 g/dL (6.4-8.2) 05/18/19 06:31 Albumin 3.7 g/dL (3.4-5.0) 05/18/19 06:31 TSH 1.72 uIU/mL (0.36-3.74) 05/18/19 15:30 Ur Collection Duration Cancelled 05/18/19 15:30 Ur 24 Hour Volume Cancelled 05/18/19 15:30 Ur Creatinine Concen Cancelled 05/18/19 15:30 Ur Free Cortisol 24 Hr Cancelled 05/18/19 15:30 U Metanephrine/Creat Cancelled 05/18/19 15:30 U Normetanephrine/Creat Cancelled 05/18/19 15:30 U Tot Metanephri/Creat Cancelled 05/18/19 15:30 Echo 05/19/19: The patient was in atrial fibrillation throughout study. This rhythm can interfere with accurate global and segmental wall motion analysis. Summary: 1. Left ventricle: The cavity size was normal. Wall thickness was increased in a pattern of moderate to severe LVH. Systolic function was at the lower limits of normal. The estimated ejection fraction was 50-55%. Wall motion was normal; there were no regional wall motion abnormalities. 2. Right ventricle: The cavity size was at the upper limits of normal. Systolic function was normal. 3. Left atrium: The atrium was severely dilated. 4. Inferior vena cava: The vessel was patent and normal in size. The respirophasic diameter changes were in the normal range (greater than or equal to 50%), consistent with normal central venous pressure.
[2019-05-20] MEDS: dilTIAZem CD 120 MG CAPCR 240 MG PO (08:31)
[2019-05-20] MEDS: Glucosamine/Chondroitin CAP 2 CAP PO (08:32)
[2019-05-20] MEDS: Multivitamin TAB 1 TAB PO (08:32)
--- NOTE | 2019-05-20 16:27 | PDOC.CMPRO ---
- If Service Date Differs Date of service: 05/20/19 Time of Service: 16:27 Care Management Progress Note S/O: Rohit remains in the ICU. He continues to have symptomatic atrial fibrillation. Dr. Mayorga has reached out to [facility] to consult regarding his care and is waiting for a call back. It is possible he will be transferred if that is their recommendation. A: Rohit is a 53 year old man admitted to [facility] with afib with RVR P: Rohit remains ICU level of care. He is being closely monitored for rapid,symptomatic afib. Awaiting recommendations from [facility] for medical management. CM will continue to follow and provide support to patient and family.
[2019-05-20 17:43] LABS: Bilirubin Negative (Negative); Blood Trace-lysed (Negative); Clarity Clear (Clear); Glucose Negative (Negative); Ketones Negative (Negative); Leukocyte Esterase Negative (Negative); Nitrite Negative (Negative); Specific Gravity <= 1.005 (1.005-1.025); Urobilinogen 0.2 EU/dL (Up TO 0.2); pH 5.5 (5-8)
[2019-05-20 18:06] LABS: Bacteria Rare HPF (Negative); Epithelial Cells Negative HPF (Negative); Other Cells Negative (Negative); RBC 0-2 (0-2); WBC Negative HPF (0-5)
[2019-05-20 18:07] LABS: C & S Indicated? No; Casts Negative LPF (Negative); Crystals Negative HPF (Negative); Mucus Negative (Negative)
[2019-05-20] MEDS: Rivaroxaban 10 MG TABLET 20 MG PO (18:12)
[2019-05-20] MEDS: Pantoprazole 40 MG TABCR PO (18:12)
[2019-05-20] MEDS: Normal Saline Flush 10 ML SYR IVP (22:49)
[2019-05-21] VITALS (60 sets, daily range): BP systolic 94–144; BP diastolic 58–101; PULSE 55–190; RESP 9–39; TEMP 36.4–36.8; O2SAT 97–100
[2019-05-21] MEDS: Metoprolol 25 MG TAB PO (04:53)
[2019-05-21] MEDS: Normal Saline 250 ML 999 ML IV (05:45)
--- NOTE | 2019-05-21 06:55 | NUR.NOTE ---
The patient went to sit up this morning and did so slowly. After sitting on the side of the bed he began to not feel right. He slowly stood and sat back down twice and proceeded to be lightheaded, nauseous, diaphoretic, and felt like I was going to pass out per patient. He called in the RN and Americo Calero RN responded. Pt's BP was found to be 126/66 with a weak radial pulse. His HR was low 80s-120s. Pt had taken metoprolol around 0500 and when asked if this was similar to his prior non-tolerance of metoprolol he states no. Prior he just got tired. He had just had a 16 beat run of HR 150s within minutes of feeling his symptoms but he had similar runs up to 170s earlier in the night and was asymptomatic even while walking. Heart and lungs assessed, no chest pain. EKG was started and Dr. Oela was paged. A NS bolus was started while awaiting a call from the doctor. Dr. Matta reviewed pt's symptoms and history and does not feel any medication treatment is needed except a bolus of 250ml NS. He ordered for the EKG to be done and order a troponin with AM labs. The patient's symptoms subsided within approximately 3-5 minutes of lying down. After the bolus had completed with an additional 250ml, the patient was able to get OOB asymptomatically. Nursing Note:
[2019-05-21 07:31] LABS: Anion Gap 8.6 mmol/L (3-11); BUN 20 mg/dL (7-18); CO2 28.4 mmol/L (21.0-32.0); Calcium 8.5 mg/dL (8.5-10.1); Chloride 107 mmol/L (98-107); Glucose 88 mg/dL (70-100); Magnesium 2.1 mg/dL (1.8-2.4); Potassium 3.6 mmol/L (3.5-5.1); Sodium 144 mmol/L (136-145)
[2019-05-21 07:42] LABS: Troponin I < 0.05 ng/mL (0.00-0.06)
[2019-05-21] MEDS: dilTIAZem CD 120 MG CAPCR 240 MG PO (08:09)
[2019-05-21] MEDS: Glucosamine/Chondroitin CAP 2 CAP PO (08:10)
[2019-05-21] MEDS: Multivitamin TAB 1 TAB PO (08:10)
--- NOTE | 2019-05-21 08:23 | W.PM.PROGNOT ---
Date of Service Date of service: 05/21/19 Time of Service: 08:23 Assessment and Plan Assessment and plan (1) Paroxysmal atrial fibrillation: Status: Chronic Assessment and plan: Rapid afib, rates difficult to control with CCB, but possibly improving with diltiazem CD 360 mg daily. Intolerante of metoprolol - d/c'ed. Discussed with cardiology at [facility] - [employer] school library media specialist will get back to us tomorrow. Will consult our cardiology tomorrow as well. Consider amiodarone. s/p 2 prior ablations with last occuring on 05/10. S/p sotalol failure in the past. Has never been tried on digoxin, amiodarone, any other antiarrhythmics. -high suspicion for MIKE - will need a sleep study as outpatient. (2) Adrenal adenoma: Status: Acute Assessment and plan: Undergoing workup for a functional adrenal adenoma, which could be triggering the high heart rates. Urine/plasma studies sent out. (3) Chest pain: Status: Resolved Assessment and plan: Likely post-procedure pericarditis/inflammation. Troponins have been negative. No evidence of pericardial effusion on echo. No evidence of ACS. Monitor/symptom management. (4) HTN (hypertension): Status: Chronic Assessment and plan: BP's are tolerating increase of diltiazem CD to 360 mg daily. Continue to monitor. (5) DVT prophylaxis: Status: Acute Assessment and plan: On chronic anticoagulation with Rivaroxaban. (6) Discharge planning issues: Status: Acute Assessment and plan: Full code Keep in ICU in case requires being initiated on amiodarone. Subjective Subjective Interval history since last seen: [place] lightheaded and whoozy after he got metoprolol, HR went up to 130. Received a total of 360 mg of cardizem CD. Denies dizziness now, reports a small amount of midsternal chest pain that goes away when he presses on it with his fist. Had shortness of breath this morning, but not now. No Nausea now. I discussed the case with Dr Newell of cardiology at [facility], who recommended doing what we are doing (increasing cardizem to 360 mg PO daily). She will discuss the case with the patient's product technician tomorrow and get back to us. Exam Narrative Exam Narrative: General: very pleasant middle-aged male, A&Ox3, sitting up comfortably in bed, joking. HEENT: EOMI, MMM Heart: irregularly irregular rhythm, tachycardic Lungs: CTAB GI: abdomen is soft, nontender, nondistended Extremities: no e/c/c BLE's Objective Objective Clinical Data: Abnormal lab results 05/20/19 05/21/19 Range/Units 17:00 06:20 BUN 20 H D (7-18) mg/dL Urine Blood Trace-lysed H (Negative) Vital Signs Temperature 36.5 C 05/21/19 04:58 Temperature Source Temporal Artery Scan 05/21/19 04:58 Pulse 55 L 05/21/19 06:01 Pulse 109 H 05/21/19 07:30 Respiratory Rate 20 05/21/19 07:30 Respiratory Effort Non-Labored 05/21/19 04:58 Respiratory Depth Normal 05/21/19 04:58 Respiratory Pattern Normal 05/21/19 04:58 Blood Pressure 127/75 05/21/19 06:01 Blood Pressure Mean 87 05/21/19 06:01 Blood Pressure Position Supine 05/20/19 12:54 Pulse Oximetry 97 05/21/19 06:01 Oxygen Delivery Method Room Air 05/20/19 23:25 Oxygen Flow Rate 0 05/20/19 23:25 Pain Level 0 05/21/19 04:58 Comment 05/20/19 23:17 Intake & Output 05/20/19 05/20/19 05/21/19 11:59 23:59 11:59 Intake Total 400 / 1140 740 / 1140 500 / 500 Output Total 1050 / 2800 1750 / 2800 900 / 900 Balance -650 / -1660 -1010 / -1660 -400 / -400 Weight 118.4 kg 118 kg Intake: IV 500 / 500 Oral 400 / 1140 740 / 1140 Output: Urine 1050 / 2800 1750 / 2800 900 / 900 Other: Urine Color Yellow Pale Yellow Urine Appearance Clear Clear Clear Urine Odor Normal Normal Comment Completed 24 hour urine sent to lab this am. Pt voiding to urinal Pt voiding to urinal Voiding Methods Urinal Urinal Urinal Laboratory Results WBC 7.30 k/cumm (4.4-10.8) 05/20/19 06:20 RBC 5.40 m/cumm (4.50-6.00) 05/20/19 06:20 Hgb 17.1 g/dL (13.5-17.5) 05/20/19 06:20 Hct 49.8 % (40.0-50.0) 05/20/19 06:20 MCV 92.2 fL (80-95) 05/20/19 06:20 MCH 31.7 pg (27.0-33.0) 05/20/19 06:20 MCHC 34.3 g/dL (32.0-36.0) 05/20/19 06:20 RDW 13.5 % (11.8-14.1) 05/20/19 06:20 Plt Count 273 x1000/uL (130-400) 05/20/19 06:20 MPV 10.1 fL (8.0-11.0) 05/20/19 06:20 Immature Gran % 0.3 05/20/19 06:20 Neutrophils % 60.2 05/20/19 06:20 Lymphocytes % 28.4 05/20/19 06:20 Monocytes % 8.5 05/20/19 06:20 Eosinophils % 2.1 05/20/19 06:20 Basophils % 0.5 05/20/19 06:20 Absolute Neutrophils 4.40 k/cumm (1.2-6.7) 05/20/19 06:20 Absolute Lymphocytes 2.07 k/cumm (1.2-3.4) 05/20/19 06:20 Absolute Monocytes 0.62 k/cumm (0.11-0.7) 05/20/19 06:20 Absolute Eosinophils 0.15 k/cumm (0.0-0.7) 05/20/19 06:20 Absolute Basophils 0.04 k/cumm (0.0-0.2) 05/20/19 06:20 Sodium 144 mmol/L (136-145) 05/21/19 06:20 Potassium 3.6 mmol/L (3.5-5.1) 05/21/19 06:20 Chloride 107 mmol/L (98-107) 05/21/19 06:20 Carbon Dioxide 28.4 mmol/L (21.0-32.0) 05/21/19 06:20 Anion Gap 8.6 mmol/L (3-11) 05/21/19 06:20 BUN 20 mg/dL (7-18) H D 05/21/19 06:20 Creatinine 1.10 mg/dL (0.70-1.30) 05/21/19 06:20 Estimated GFR/1.73 m2 >= 60.00 (mL/min/1.73m2) 05/21/19 06:20 Glucose 88 mg/dL (70-100) 05/21/19 06:20 Calcium 8.5 mg/dL (8.5-10.1) 05/21/19 06:20 Magnesium 2.1 mg/dL (1.8-2.4) 05/21/19 06:20 Total Bilirubin 0.9 mg/dL (0.2-1.0) 05/18/19 06:31 AST 19 U/L (15-37) 05/18/19 06:31 ALT 44 U/L (16-63) 05/18/19 06:31 Alkaline Phosphatase 79 U/L (46-116) 05/18/19 06:31 Troponin I < 0.05 ng/mL (0.00-0.06) 05/21/19 06:20 Total Protein 7.1 g/dL (6.4-8.2) 05/18/19 06:31 Albumin 3.7 g/dL (3.4-5.0) 05/18/19 06:31 TSH 1.72 uIU/mL (0.36-3.74) 05/18/19 15:30 Urine Color Yellow (Yellow) 05/20/19 17:00 Urine Clarity Clear (Clear) 05/20/19 17:00 Urine pH 5.5 (5-8) 05/20/19 17:00 Ur Specific [place] <= 1.005 (1.005-1.025) 05/20/19 17:00 Urine Protein Negative mg/dL (Negative) 05/20/19 17:00 Urine Ketones Negative mg/dL (Negative) 05/20/19 17:00 Urine Blood Trace-lysed (Negative) H 05/20/19 17:00 Urine Nitrite Negative (Negative) 05/20/19 17:00 Urine Bilirubin Negative (Negative) 05/20/19 17:00 Urine Urobilinogen 0.2 EU/dL (Up TO 0.2) 05/20/19 17:00 Ur Leukocyte Esterase Negative (Negative) 05/20/19 17:00 Urine RBC 0-2 (0-2) 05/20/19 17:00 Urine WBC Negative HPF (0-5) 05/20/19 17:00 Ur Epithelial Cells Negative HPF (Negative) 05/20/19 17:00 Urine Crystals Negative HPF (Negative) 05/20/19 17:00 Urine Bacteria Rare HPF (Negative) 05/20/19 17:00 Urine Casts Negative LPF (Negative) 05/20/19 17:00 Urine Mucus Negative (Negative) 05/20/19 17:00 Urine Other Negative (Negative) 05/20/19 17:00 Ur Culture Indicated? No 05/20/19 17:00 Ur Collection Duration Cancelled 05/18/19 15:30 Ur 24 Hour Volume Cancelled 05/18/19 15:30 Ur Creatinine Concen Cancelled 05/18/19 15:30 Urine Glucose Negative mg/dL (Negative) 05/20/19 17:00 Ur Free Cortisol 24 Hr Cancelled 05/18/19 15:30 U Metanephrine/Creat Cancelled 05/18/19 15:30 U Normetanephrine/Creat Cancelled 05/18/19 15:30 U Tot Metanephri/Creat Cancelled 05/18/19 15:30
[2019-05-21] MEDS: dilTIAZem CD 120 MG CAPCR PO (09:17)
--- NOTE | 2019-05-21 16:05 | CMPROGNOTE_ITS ---
- If Service Date Differs Date of service: 05/21/19 Time of Service: 16:05 Care Management Progress Note S/O: Rohit remains in the ICU. He stated to CM that he does not feel he is improving; he had another episode this morning where he was symptomatic secondary to his atrial fibrillation. Dr. Mayorga has reached out to [facility] to consult cardiology regarding his care. They will have an command and control specialist contact hospitalist tomorrow. [facility] Cardiology will also be consulted tomorrow. A: Rohit is a 53 year old man admitted to [facility] with afib with RVR P: Rohit remains ICU level of care. He is being closely monitored for rapid,symptomatic afib. Awaiting recommendations from [facility] for medical manageme nt. will continue to follow and provide support to patient and family.
--- NOTE | 2019-05-21 16:05 | PDOC.CMPRO ---
- If Service Date Differs Date of service: 05/21/19 Time of Service: 16:05 Care Management Progress Note S/O: Rohit remains in the ICU. He stated to CM that he does not feel he is improving; he had another episode this morning where he was symptomatic secondary to his atrial fibrillation. Dr. Mayorga has reached out to [facility] to consult cardiology regarding his care. They will have an events specialist contact hospitalist tomorrow. [facility] Cardiology will also be consulted tomorrow. A: Rohit is a 53 year old man admitted to [facility] with afib with RVR P: Rohit remains ICU level of care. He is being closely monitored for rapid,symptomatic afib. Awaiting recommendations from [facility] for medical management. CM will continue to follow and provide support to patient and family.
[2019-05-21] MEDS: Pantoprazole 40 MG TABCR PO (17:02)
[2019-05-21] MEDS: Rivaroxaban 10 MG TABLET 20 MG PO (17:02)
[2019-05-22] VITALS (83 sets, daily range): BP systolic 101–157; BP diastolic 51–116; PULSE 49–170; RESP 12–37; TEMP 36.4–36.9; O2SAT 99
[2019-05-22 07:33] LABS: Anion Gap 9.6 mmol/L (3-11); BUN 18 mg/dL (7-18); CO2 28.4 mmol/L (21.0-32.0); CREATININE 1.16 mg/dL (0.70-1.30); Chloride 105 mmol/L (98-107); Glucose 95 mg/dL (70-100); Magnesium 2.2 mg/dL (1.8-2.4); Sodium 143 mmol/L (136-145)
[2019-05-22] MEDS: dilTIAZem CD 180 MG CAPCR 360 MG PO (08:02)
[2019-05-22] MEDS: Multivitamin TAB 1 TAB PO (08:02)
[2019-05-22] MEDS: Glucosamine/Chondroitin CAP 2 CAP PO (08:02)
--- NOTE | 2019-05-22 08:22 | W.PM.PROGNOT ---
Date of Service Date of service: 05/22/19 Time of Service: Assessment and Plan Assessment and plan (1) Paroxysmal atrial fibrillation: Status: Chronic Assessment and plan: Rapid afib, rates difficult to control even with cardizem CD 360 mg PO daily. Cardiology consult is pending. Right now the plan is to consider cardioversion on Wednesday and trial amiodarone until then. Will await final recommendations. Intolerante of metoprolol. s/p 2 prior ablations with last occuring on 05/10. S/p sotalol failure in the past. Has never been tried on digoxin, amiodarone, any other antiarrhythmics. -high suspicion for MIKE - will need a sleep study as outpatient. (2) Depression with anxiety: Status: Acute Assessment and plan: Likely situational and could certainly be contributing to higher heart rates, but I doubt that this is the only thing responsible for the tachycardia. Will likely eventually need initiation of an SSRI, but I do not feel comfortable doing so now. Denies suicidal ideation. Will trial prn hydroxyzine. I discussed my thoughts with the patient, and he is on board with this plan. I offered a psychiatry consult - he is thinking about it. (3) Adrenal adenoma: Status: Acute Assessment and plan: Undergoing workup for a functional adrenal adenoma, which could be triggering the high heart rates. Urine/plasma studies sent out. (4) Chest pain: Status: Resolved Assessment and plan: Likely post-procedure pericarditis/inflammation. Troponins have been negative. No evidence of pericardial effusion on echo. No evidence of ACS. Trial toradol for pain. (5) HTN (hypertension): Status: Chronic Assessment and plan: BP's are tolerating increase of diltiazem CD to 360 mg daily. Continue to monitor. We might have to decrease the dose of diltiazem once amiodarone is on board. (6) DVT prophylaxis: Status: Acute Assessment and plan: On chronic anticoagulation with Rivaroxaban. (7) Discharge planning issues: Status: Acute Assessment and plan: Full code Keep in ICU Subjective Subjective Interval history since last seen: Short bursts of HR up to 170's, resting heart rate 84-140's. Reports dizziness/nausea when laying to sitting this morning. [place] he was going to faint. Complains of palpitations. Denies chest pain today. Denies shortness of breath. He himself brings up that he feels anxious and depressed. He denies suicidal ideation. He is wondering if his anxiety is contributing to his heart rates. He used to be on bupropion in the past when he was depressed. He does not recall the word anxiety then. He states he has had a lot of stressors in his life recently - his son committed suicide 4 years ago, he is going through his 2nd divorce, and is about to move to [place]. He thinks he is moving to [place] in 3 days. He does not have a PCP there. We spoke about my discmofort with starting an SSRI/welbutrin unless he had stable follow up as outpatient. He is willing to try hydroxyzine for anxiety. He was advised that it can make him drowsy. Exam Narrative Exam Narrative: General: very pleasant middle-aged male, A&Ox3, sitting up at the edge of the bed, anxious HEENT: EOMI, MMM Heart: irregularly irregular rhythm, tachycardic Lungs: CTAB GI: abdomen is soft, nontender, nondistended Extremities: no e/c/c BLE's Objective Objective Clinical Data: Vital Signs Temperature 36.8 C 05/22/19 04:45 Temperature Source Temporal Artery Scan 05/22/19 04:45 Pulse 82 05/22/19 06:02 Pulse 97 H 05/22/19 06:03 Respiratory Rate 18 05/22/19 06:03 Respiratory Effort Non-Labored 05/22/19 04:45 Respiratory Depth Normal 05/22/19 04:45 Respiratory Pattern Normal 05/22/19 04:45 Blood Pressure 121/94 H 05/22/19 06:02 Blood Pressure Mean 99 05/22/19 06:02 Blood Pressure Position Sitting 05/22/19 04:45 Pulse Oximetry 99 05/22/19 04:45 Oxygen Delivery Method Room Air 05/22/19 04:45 Oxygen Flow Rate 0 05/22/19 04:45 Pain Level 0 05/22/19 04:45 Comment 05/20/19 23:17 Intake & Output 05/21/19 05/21/19 05/22/19 11:59 23:59 11:59 Intake Total 1100 / 2620 1520 / 2620 Output Total 1175 / 2175 1000 / 2175 1400 / 1400 Balance -75 / 445 520 / 445 -1400 / -1400 Weight 116.4 kg 118 kg Intake: IV 500 / 500 Oral 600 / 2120 1520 / 2120 Output: Urine 1175 / 2175 1000 / 2175 1400 / 1400 Other: Urine Color Yellow Yellow Yellow Urine Appearance Clear Clear Clear Urine Odor None None Comment Pt voiding to urinal Voiding Methods Urinal Urinal Urinal Laboratory Results WBC 7.30 k/cumm (4.4-10.8) 05/20/19 06:20 RBC 5.40 m/cumm (4.50-6.00) 05/20/19 06:20 Hgb 17.1 g/dL (13.5-17.5) 05/20/19 06:20 Hct 49.8 % (40.0-50.0) 05/20/19 06:20 MCV 92.2 fL (80-95) 05/20/19 06:20 MCH 31.7 pg (27.0-33.0) 05/20/19 06:20 MCHC 34.3 g/dL (32.0-36.0) 05/20/19 06:20 RDW 13.5 % (11.8-14.1) 05/20/19 06:20 Plt Count 273 x1000/uL (130-400) 05/20/19 06:20 MPV 10.1 fL (8.0-11.0) 05/20/19 06:20 Immature Gran % 0.3 05/20/19 06:20 Neutrophils % 60.2 05/20/19 06:20 Lymphocytes % 28.4 05/20/19 06:20 Monocytes % 8.5 05/20/19 06:20 Eosinophils % 2.1 05/20/19 06:20 Basophils % 0.5 05/20/19 06:20 Absolute Neutrophils 4.40 k/cumm (1.2-6.7) 05/20/19 06:20 Absolute Lymphocytes 2.07 k/cumm (1.2-3.4) 05/20/19 06:20 Absolute Monocytes 0.62 k/cumm (0.11-0.7) 05/20/19 06:20 Absolute Eosinophils 0.15 k/cumm (0.0-0.7) 05/20/19 06:20 Absolute Basophils 0.04 k/cumm (0.0-0.2) 05/20/19 06:20 Sodium 143 mmol/L (136-145) 05/22/19 06:15 Potassium 4.0 mmol/L (3.5-5.1) 05/22/19 06:15 Chloride 105 mmol/L (98-107) 05/22/19 06:15 Carbon Dioxide 28.4 mmol/L (21.0-32.0) 05/22/19 06:15 Anion Gap 9.6 mmol/L (3-11) 05/22/19 06:15 BUN 18 mg/dL (7-18) 05/22/19 06:15 Creatinine 1.16 mg/dL (0.70-1.30) 05/22/19 06:15 Estimated GFR/1.73 m2 >= 60.00 (mL/min/1.73m2) 05/22/19 06:15 Glucose 95 mg/dL (70-100) 05/22/19 06:15 Calcium 9.0 mg/dL (8.5-10.1) 05/22/19 06:15 Magnesium 2.2 mg/dL (1.8-2.4) 05/22/19 06:15 Total Bilirubin 0.9 mg/dL (0.2-1.0) 05/18/19 06:31 AST 19 U/L (15-37) 05/18/19 06:31 ALT 44 U/L (16-63) 05/18/19 06:31 Alkaline Phosphatase 79 U/L (46-116) 05/18/19 06:31 Troponin I < 0.05 ng/mL (0.00-0.06) 05/21/19 06:20 Total Protein 7.1 g/dL (6.4-8.2) 05/18/19 06:31 Albumin 3.7 g/dL (3.4-5.0) 05/18/19 06:31 TSH 1.72 uIU/mL (0.36-3.74) 05/18/19 15:30 Urine Color Yellow (Yellow) 05/20/19 17:00 Urine Clarity Clear (Clear) 05/20/19 17:00 Urine pH 5.5 (5-8) 05/20/19 17:00 Ur Specific [place] <= 1.005 (1.005-1.025) 05/20/19 17:00 Urine Protein Negative mg/dL (Negative) 05/20/19 17:00 Urine Ketones Negative mg/dL (Negative) 05/20/19 17:00 Urine Blood Trace-lysed (Negative) H 05/20/19 17:00 Urine Nitrite Negative (Negative) 05/20/19 17:00 Urine Bilirubin Negative (Negative) 05/20/19 17:00 Urine Urobilinogen 0.2 EU/dL (Up TO 0.2) 05/20/19 17:00 Ur Leukocyte Esterase Negative (Negative) 05/20/19 17:00 Urine RBC 0-2 (0-2) 05/20/19 17:00 Urine WBC Negative HPF (0-5) 05/20/19 17:00 Ur Epithelial Cells Negative HPF (Negative) 05/20/19 17:00 Urine Crystals Negative HPF (Negative) 05/20/19 17:00 Urine Bacteria Rare HPF (Negative) 05/20/19 17:00 Urine Casts Negative LPF (Negative) 05/20/19 17:00 Urine Mucus Negative (Negative) 05/20/19 17:00 Urine Other Negative (Negative) 05/20/19 17:00 Ur Culture Indicated? No 05/20/19 17:00 Ur Collection Duration Cancelled 05/18/19 15:30 Ur 24 Hour Volume Cancelled 05/18/19 15:30 Ur Creatinine Concen Cancelled 05/18/19 15:30 Urine Glucose Negative mg/dL (Negative) 05/20/19 17:00 Ur Free Cortisol 24 Hr Cancelled 05/18/19 15:30 U Metanephrine/Creat Cancelled 05/18/19 15:30 U Normetanephrine/Creat Cancelled 05/18/19 15:30 U Tot Metanephri/Creat Cancelled 05/18/19 15:30
[2019-05-22] MEDS: Ketorolac 15 MG/ML VIAL IVP ×2 (14:25→18:41)
[2019-05-22] MEDS: Normal Saline Flush 10 ML SYR IVP (14:25)
--- NOTE | 2019-05-22 16:00 | PDOC.CMPRO ---
- If Service Date Differs Date of service: 05/22/19 Time of Service: 16:00 Care Management Progress Note S/O: Rohit remains ICU level of care. He was sitting up in bed with a worried expression on his face when CM came to see him. He stated he has had 2 more episodes since yesterday. When asked to describe them he stated that he gets nauseated, then dizzy when he tries to get up. He said that he feels like [facility] has abandoned him. Since he had his procedures there he feels like its their problem. A cardiology consult is planned for 3 pm today. A: Rohit is a 53 year old man admitted to [facility] with afib with RVR P: Rohit remains ICU level of care. He is being closely monitored for rapid,symptomatic afib. Awaiting recommendations from [facility] for medical management. CM will continue to follow and provide support to patient and family.
[2019-05-22] MEDS: Pantoprazole 40 MG TABCR PO (18:41)
[2019-05-22] MEDS: Rivaroxaban 10 MG TABLET 20 MG PO (18:41)
[2019-05-23] VITALS (52 sets, daily range): BP systolic 97–139; BP diastolic 67–107; PULSE 47–125; RESP 8–29; TEMP 36.3–37.1; O2SAT 100
[2019-05-23] MEDS: Ketorolac 15 MG/ML VIAL IVP ×3 (00:18→11:28)
[2019-05-23] MEDS: hydrOXYzine HCL 25 MG TAB PO ×2 (00:23→20:24)
[2019-05-23 07:04] LABS: Anion Gap 9.2 mmol/L (3-11); BUN 18 mg/dL (7-18); CO2 24.8 mmol/L (21.0-32.0); CREATININE 1.09 mg/dL (0.70-1.30); Calcium 8.5 mg/dL (8.5-10.1); Chloride 107 mmol/L (98-107); Glucose 96 mg/dL (70-100); Magnesium 2.1 mg/dL (1.8-2.4); Potassium 3.6 mmol/L (3.5-5.1); Sodium 141 mmol/L (136-145)
[2019-05-23] MEDS: Glucosamine/Chondroitin CAP 2 CAP PO (08:01)
[2019-05-23] MEDS: dilTIAZem CD 120 MG CAPCR 240 MG PO (08:01)
[2019-05-23] MEDS: Multivitamin TAB 1 TAB PO (08:01)
--- NOTE | 2019-05-23 08:16 | W.PM.PROGNOT ---
Date of Service Date of service: 05/23/19 Time of Service: 08:16 Assessment and Plan Assessment and plan (1) Paroxysmal atrial fibrillation: Status: Chronic Assessment and plan: Rapid afib, still with RVR today, though I did see heart rates in the 50's overnight. He is now in 110's-120's at rest. Remains on an infusion of amiodarone. Intolerante of metoprolol. s/p 2 prior ablations with last occuring on 05/10. S/p sotalol failure in the past. If still in Afib and symptomatic tomorrow, planned for cardioversion tomorrow. -high suspicion for MIKE - will need a sleep study as outpatient. (2) Depression with anxiety: Status: Acute Assessment and plan: Likely situational and could certainly be contributing to higher heart rates. I do not feel comfortable starting an SSRI if his plan on discharge is to move to [place] where he does not have a PCP. Denies suicidal ideation. Continue prn hydroxyzine. (3) Adrenal adenoma: Status: Acute Assessment and plan: Undergoing workup for a functional adrenal adenoma, which could be triggering the high heart rates. Urine/plasma studies are still pending (sent out 05/18/19). (4) Chest pain: Status: Resolved Assessment and plan: Likely post-procedure pericarditis/inflammation. Troponins have been negative. No evidence of pericardial effusion on echo. No evidence of ACS. No chest pain today at all. Continue NSAIDs for now. (5) HTN (hypertension): Status: Chronic Assessment and plan: Stable while on amiodarone drip and on cardizem. Monitor. (6) DVT prophylaxis: Status: Acute Assessment and plan: On chronic anticoagulation with Rivaroxaban. (7) Discharge planning issues: Status: Acute Assessment and plan: Full code Keep in ICU Possible discharge home tomorrow post cardioversion. Subjective Subjective Interval history since last seen: HR 60-90's, on amiodarone drip, remains in Afib. 3.29 sec pause. No CP today, but does complain of shortness of breath when he really feels the palpitations. Had an episode like that this morning. No dizziness/nausea this morning. Exam Narrative Exam Narrative: General: very pleasant middle-aged male, A&Ox3, laying in bed at a 30 degree angle, no tachypenia noted, does not appear as anxious as yesterday HEENT: EOMI, MMM Heart: irregularly irregular rhythm, tachycardic Lungs: CTAB GI: abdomen is soft, nontender, nondistended Extremities: no e/c/c BLE's Objective Objective Clinical Data: Vital Signs Temperature 37.1 C 05/23/19 04:39 Temperature Source Temporal Artery Scan 05/23/19 04:39 Pulse 53 L 05/23/19 04:31 Pulse 79 05/23/19 04:31 Respiratory Rate 15 05/23/19 03:46 Respiratory Effort 05/23/19 04:39 Respiratory Depth Normal 05/23/19 04:39 Respiratory Pattern Normal 05/23/19 04:39 Blood Pressure 110/71 05/23/19 04:31 Blood Pressure Mean 81 05/23/19 04:31 Blood Pressure Position Sitting 05/22/19 20:00 Pulse Oximetry 99 05/22/19 04:45 Oxygen Delivery Method Room Air 05/23/19 04:39 Oxygen Flow Rate 0 05/23/19 04:39 Pain Level 0 05/23/19 07:55 Comment 05/20/19 23:17 Intake & Output 05/22/19 05/22/19 05/23/19 11:59 23:59 11:59 Intake Total 500 / 1134.443 634.443 / 1134.443 293.333 / 293.333 Output Total 1700 / 2150 450 / 2150 1450 / 1450 Balance -1200 / -1015.557 184.443 / -1015.557 -1156.667 / -1156.667 Weight 118 kg 117.2 kg Intake: IV 134.443 / 134.443 43.333 / 43.333 Oral 500 / 1000 500 / 1000 250 / 250 Output: Urine 1700 / 2150 450 / 2150 1450 / 1450 Other: Urine Color Yellow Yellow Yellow Straw Straw Urine Appearance Clear Clear Clear Urine Odor Normal Normal Comment Voiding QS via urinal independently. Voids to urinal independently. Voiding Methods Urinal Urinal Laboratory Results WBC 7.30 k/cumm (4.4-10.8) 05/20/19 06:20 RBC 5.40 m/cumm (4.50-6.00) 05/20/19 06:20 Hgb 17.1 g/dL (13.5-17.5) 05/20/19 06:20 Hct 49.8 % (40.0-50.0) 05/20/19 06:20 MCV 92.2 fL (80-95) 05/20/19 06:20 MCH 31.7 pg (27.0-33.0) 05/20/19 06:20 MCHC 34.3 g/dL (32.0-36.0) 05/20/19 06:20 RDW 13.5 % (11.8-14.1) 05/20/19 06:20 Plt Count 273 x1000/uL (130-400) 05/20/19 06:20 MPV 10.1 fL (8.0-11.0) 05/20/19 06:20 Immature Gran % 0.3 05/20/19 06:20 Neutrophils % 60.2 05/20/19 06:20 Lymphocytes % 28.4 05/20/19 06:20 Monocytes % 8.5 05/20/19 06:20 Eosinophils % 2.1 05/20/19 06:20 Basophils % 0.5 05/20/19 06:20 Absolute Neutrophils 4.40 k/cumm (1.2-6.7) 05/20/19 06:20 Absolute Lymphocytes 2.07 k/cumm (1.2-3.4) 05/20/19 06:20 Absolute Monocytes 0.62 k/cumm (0.11-0.7) 05/20/19 06:20 Absolute Eosinophils 0.15 k/cumm (0.0-0.7) 05/20/19 06:20 Absolute Basophils 0.04 k/cumm (0.0-0.2) 05/20/19 06:20 Sodium 141 mmol/L (136-145) 05/23/19 06:30 Potassium 3.6 mmol/L (3.5-5.1) 05/23/19 06:30 Chloride 107 mmol/L (98-107) 05/23/19 06:30 Carbon Dioxide 24.8 mmol/L (21.0-32.0) 05/23/19 06:30 Anion Gap 9.2 mmol/L (3-11) 05/23/19 06:30 BUN 18 mg/dL (7-18) 05/23/19 06:30 Creatinine 1.09 mg/dL (0.70-1.30) 05/23/19 06:30 Estimated GFR/1.73 m2 >= 60.00 (mL/min/1.73m2) 05/23/19 06:30 Glucose 96 mg/dL (70-100) 05/23/19 06:30 Calcium 8.5 mg/dL (8.5-10.1) 05/23/19 06:30 Magnesium 2.1 mg/dL (1.8-2.4) 05/23/19 06:30 Total Bilirubin 0.9 mg/dL (0.2-1.0) 05/18/19 06:31 AST 19 U/L (15-37) 05/18/19 06:31 ALT 44 U/L (16-63) 05/18/19 06:31 Alkaline Phosphatase 79 U/L (46-116) 05/18/19 06:31 Troponin I < 0.05 ng/mL (0.00-0.06) 05/21/19 06:20 Total Protein 7.1 g/dL (6.4-8.2) 05/18/19 06:31 Albumin 3.7 g/dL (3.4-5.0) 05/18/19 06:31 Aldosterone 9.9 ng/dL (<=21) 05/18/19 15:30 TSH 1.72 uIU/mL (0.36-3.74) 05/18/19 15:30 Urine Color Yellow (Yellow) 05/20/19 17:00 Urine Clarity Clear (Clear) 05/20/19 17:00 Urine pH 5.5 (5-8) 05/20/19 17:00 Ur Specific [place] <= 1.005 (1.005-1.025) 05/20/19 17:00 Urine Protein Negative mg/dL (Negative) 05/20/19 17:00 Urine Ketones Negative mg/dL (Negative) 05/20/19 17:00 Urine Blood Trace-lysed (Negative) H 05/20/19 17:00 Urine Nitrite Negative (Negative) 05/20/19 17:00 Urine Bilirubin Negative (Negative) 05/20/19 17:00 Urine Urobilinogen 0.2 EU/dL (Up TO 0.2) 05/20/19 17:00 Ur Leukocyte Esterase Negative (Negative) 05/20/19 17:00 Urine RBC 0-2 (0-2) 05/20/19 17:00 Urine WBC Negative HPF (0-5) 05/20/19 17:00 Ur Epithelial Cells Negative HPF (Negative) 05/20/19 17:00 Urine Crystals Negative HPF (Negative) 05/20/19 17:00 Urine Bacteria Rare HPF (Negative) 05/20/19 17:00 Urine Casts Negative LPF (Negative) 05/20/19 17:00 Urine Mucus Negative (Negative) 05/20/19 17:00 Urine Other Negative (Negative) 05/20/19 17:00 Ur Culture Indicated? No 05/20/19 17:00 Ur Collection Duration Cancelled 05/18/19 15:30 Ur 24 Hour Volume Cancelled 05/18/19 15:30 Ur Creatinine Concen Cancelled 05/18/19 15:30 Urine Glucose Negative mg/dL (Negative) 05/20/19 17:00 Ur Free Cortisol 24 Hr Cancelled 05/18/19 15:30 U Metanephrine/Creat Cancelled 05/18/19 15:30 U Normetanephrine/Creat Cancelled 05/18/19 15:30 U Tot Metanephri/Creat Cancelled 05/18/19 15:30
--- NOTE | 2019-05-23 10:08 | PDOC.CMPRO ---
Care Management Progress Note S/O: Rohit remains ICU level of care at this time. He is on an amoiodarone drip which per MD will be discontinued at 1900 tonight at which point, Mehdi medications will be switched to orals. Per MD, Rohit may be ready for discharge as soon as tomorrow if a cardioversion is not recommended. Rohit is lying in bed when CM meets with him. He reports wanting to discharge tomorrow as he is planning to relocate to [place] and had been planning on moving today. He was pleasant in interaction and forthcoming with information reporting he is hoping for a new start in [place] and does not have an employment plan. 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 CM reviewed CM role and contact information as needed to support Rohit. He responded positively when asked about how he is dealing with an extended hospital stay and reported he wanted to make sure he was stable prior to relocating. He did share that he has a plan to connect with a well known Afib clinic near where he is relocating to in [place]. CM continues to follow. A: Rohit is a 53 year old man admitted to [facility] with afib with RVR P: Rohit remains ICU level of care, anticipate discharge as soon as tomorrow. CM will continue to follow and provide support to patient and family.
[2019-05-23] MEDS: Normal Saline Flush 10 ML SYR IVP ×3 (11:29→19:44)
[2019-05-23] MEDS: Rivaroxaban 10 MG TABLET 20 MG PO (17:21)
[2019-05-23] MEDS: Pantoprazole 40 MG TABCR PO (17:21)
[2019-05-23] MEDS: Amiodarone 200 MG TAB 400 MG PO (19:44)
[2019-05-24] VITALS (52 sets, daily range): BP systolic 104–165; BP diastolic 66–128; PULSE 59–145; RESP 7–34; TEMP 36.6–36.8; O2SAT 96–100
[2019-05-24] MEDS: Ketorolac 15 MG/ML VIAL IVP (00:36)
[2019-05-24] MEDS: hydrOXYzine HCL 25 MG TAB PO ×2 (00:37→10:58)
[2019-05-24] MEDS: Normal Saline Flush 10 ML SYR IVP (00:37)
[2019-05-24 07:15] LABS: HCT 46.1 % (40.0-50.0); HGB 15.9 g/dL (13.5-17.5); Mean Corp. HGB Concentration 34.5 g/dL (32.0-36.0); Mean Corpuscular Hemoglobin 31.9 pg (27.0-33.0); Mean Corpuscular Volume 92.4 fL (80-95); Mean Platelet Volume 10.8 fL (8.0-11.0); Platelet Count 228 x1000/uL (130-400); RBC 4.99 m/cumm (4.50-6.00); RBC Distribution Width 13.2 % (11.8-14.1); White Blood Cell Count 8.43 k/cumm (4.4-10.8)
--- NOTE | 2019-05-24 08:25 | W.PM.PROGNOT ---
Date of Service Date of service: 05/24/19 Time of Service: 08:25 Subjective Subjective Interval history since last seen: NO issues, HR 80-150's Afib, no CP. Objective Objective Clinical Data: Vital Signs Temperature 36.8 C 05/24/19 03:04 Temperature Source Temporal Artery Scan 05/24/19 03:04 Pulse 69 05/24/19 02:53 Pulse 88 05/24/19 07:00 Respiratory Rate 7 L 05/24/19 07:00 Respiratory Effort 05/24/19 03:04 Respiratory Depth Normal 05/24/19 03:04 Respiratory Pattern Normal 05/24/19 03:04 Blood Pressure 134/104 H 05/24/19 02:53 Blood Pressure Mean 111 05/24/19 02:53 Blood Pressure Position Supine 05/23/19 23:35 Pulse Oximetry 100 05/23/19 20:01 Oxygen Delivery Method Room Air 05/24/19 03:04 Oxygen Flow Rate 0 05/24/19 03:04 Pain Level 0 05/24/19 03:04 Comment 05/20/19 23:17 Intake & Output 05/23/19 05/23/19 05/24/19 11:59 23:59 11:59 Intake Total 798.333 / 1558.333 760 / 1558.333 Output Total 1450 / 3245 1795 / 3245 1600 / 1600 Balance -651.667 / -1686.667 -1035 / -1686.667 -1600 / -1600 Weight 117.2 kg Intake: IV 188.333 / 188.333 Oral 610 / 1370 760 / 1370 Output: Urine 1450 / 3245 1795 / 3245 1600 / 1600 Other: Urine Color Yellow Yellow Yellow Urine Appearance Clear Clear Clear Urine Odor Normal Comment Voids to urinal independently. Voiding Methods Urinal Urinal Urinal Laboratory Results WBC 8.43 k/cumm (4.4-10.8) 05/24/19 06:07 RBC 4.99 m/cumm (4.50-6.00) 05/24/19 06:07 Hgb 15.9 g/dL (13.5-17.5) 05/24/19 06:07 Hct 46.1 % (40.0-50.0) 05/24/19 06:07 MCV 92.4 fL (80-95) 05/24/19 06:07 MCH 31.9 pg (27.0-33.0) 05/24/19 06:07 MCHC 34.5 g/dL (32.0-36.0) 05/24/19 06:07 RDW 13.2 % (11.8-14.1) 05/24/19 06:07 Plt Count 228 x1000/uL (130-400) 05/24/19 06:07 MPV 10.8 fL (8.0-11.0) 05/24/19 06:07 Immature Gran % 0.3 05/20/19 06:20 Neutrophils % 60.2 05/20/19 06:20 Lymphocytes % 28.4 05/20/19 06:20 Monocytes % 8.5 05/20/19 06:20 Eosinophils % 2.1 05/20/19 06:20 Basophils % 0.5 05/20/19 06:20 Absolute Neutrophils 4.40 k/cumm (1.2-6.7) 05/20/19 06:20 Absolute Lymphocytes 2.07 k/cumm (1.2-3.4) 05/20/19 06:20 Absolute Monocytes 0.62 k/cumm (0.11-0.7) 05/20/19 06:20 Absolute Eosinophils 0.15 k/cumm (0.0-0.7) 05/20/19 06:20 Absolute Basophils 0.04 k/cumm (0.0-0.2) 05/20/19 06:20 Sodium 141 mmol/L (136-145) 05/23/19 06:30 Potassium 3.6 mmol/L (3.5-5.1) 05/23/19 06:30 Chloride 107 mmol/L (98-107) 05/23/19 06:30 Carbon Dioxide 24.8 mmol/L (21.0-32.0) 05/23/19 06:30 Anion Gap 9.2 mmol/L (3-11) 05/23/19 06:30 BUN 18 mg/dL (7-18) 05/23/19 06:30 Creatinine 1.09 mg/dL (0.70-1.30) 05/23/19 06:30 Estimated GFR/1.73 m2 >= 60.00 (mL/min/1.73m2) 05/23/19 06:30 Glucose 96 mg/dL (70-100) 05/23/19 06:30 Calcium 8.5 mg/dL (8.5-10.1) 05/23/19 06:30 Magnesium 2.1 mg/dL (1.8-2.4) 05/23/19 06:30 Total Bilirubin 0.9 mg/dL (0.2-1.0) 05/18/19 06:31 AST 19 U/L (15-37) 05/18/19 06:31 ALT 44 U/L (16-63) 05/18/19 06:31 Alkaline Phosphatase 79 U/L (46-116) 05/18/19 06:31 Troponin I < 0.05 ng/mL (0.00-0.06) 05/21/19 06:20 Total Protein 7.1 g/dL (6.4-8.2) 05/18/19 06:31 Albumin 3.7 g/dL (3.4-5.0) 05/18/19 06:31 Aldosterone 9.9 ng/dL (<=21) 05/18/19 15:30 TSH 1.72 uIU/mL (0.36-3.74) 05/18/19 15:30 Urine Color Yellow (Yellow) 05/20/19 17:00 Urine Clarity Clear (Clear) 05/20/19 17:00 Urine pH 5.5 (5-8) 05/20/19 17:00 Ur Specific [place] <= 1.005 (1.005-1.025) 05/20/19 17:00 Urine Protein Negative mg/dL (Negative) 05/20/19 17:00 Urine Ketones Negative mg/dL (Negative) 05/20/19 17:00 Urine Blood Trace-lysed (Negative) H 05/20/19 17:00 Urine Nitrite Negative (Negative) 05/20/19 17:00 Urine Bilirubin Negative (Negative) 05/20/19 17:00 Urine Urobilinogen 0.2 EU/dL (Up TO 0.2) 05/20/19 17:00 Ur Leukocyte Esterase Negative (Negative) 05/20/19 17:00 Urine RBC 0-2 (0-2) 05/20/19 17:00 Urine WBC Negative HPF (0-5) 05/20/19 17:00 Ur Epithelial Cells Negative HPF (Negative) 05/20/19 17:00 Urine Crystals Negative HPF (Negative) 05/20/19 17:00 Urine Bacteria Rare HPF (Negative) 05/20/19 17:00 Urine Casts Negative LPF (Negative) 05/20/19 17:00 Urine Mucus Negative (Negative) 05/20/19 17:00 Urine Other Negative (Negative) 05/20/19 17:00 Ur Culture Indicated? No 05/20/19 17:00 Ur Collection Duration Cancelled 05/18/19 15:30 Ur 24 Hour Volume Cancelled 05/18/19 15:30 Ur Creatinine Concen Cancelled 05/18/19 15:30 Urine Glucose Negative mg/dL (Negative) 05/20/19 17:00 Ur Free Cortisol 24 Hr Cancelled 05/18/19 15:30 U Metanephrine/Creat Cancelled 05/18/19 15:30 U Normetanephrine/Creat Cancelled 05/18/19 15:30 U Tot Metanephri/Creat Cancelled 05/18/19 15:30
--- NOTE | 2019-05-24 09:02 | CCONE_ITS ---
Date of service: 05/24/19 Assessment and Plan Assessment and plan (1) Persistent atrial fibrillation: Status: Chronic Assessment and plan: Recurrent symptomatic atrial fibrillation with rapid ventricular response within 2 weeks after A. fib ablation, probably inflammation driven. Not tolerating escalating doses of AV jayson blocking agents. Being loaded with amiodarone. Thus far no spontaneous conversion to sinus rhythm. No intra-cardiac thrombus on recent CLINTON; anticoagulated without interruption since then. Reasonable to proceed with electrical cardioversion. Procedure and risks explained. Patient agreed to proceed. Patient is n.p.o. Continue amiodarone 400 mg twice daily Continue Xarelto 20 mg daily Diltiazem dosing will depend upon heart rate after adventism of sinus rhythm. Follow-up within 2 weeks after this charge with Dr. Liz from [facility]. Patient was discussed with Dr. Myaorga. History of Present Illness History of Present Illness Chief Complaint: Atrial fibrillation Narrative: 53-year-old man with probable sleep apnea, hypertension, hyperlipidemia and atrial fibrillation status post ablation September and April 2019. Patient admitted because of recurrent atrial fibrillation with rapid ventricular response. Unable to tolerate escalating doses of AV jayson blocking agents. Being loaded with amiodarone; completed 24 hours of amiodarone infusion, now on p.o. amiodarone. Still in atrial fibrillation with rapid ventricular response. CLINTON prior to ablation was negative for intra-cardiac thrombus. He has been on oral anti-coagulation without interruption since his CLINTON. Patient is highly symptomatic when in atrial fibrillation. Echocardiogram from this admission showed normal biventricular size and function and no hemodynamically significant valvular heart disease. Patient denies shortness of breath, PND, chest pain, edema, syncope, claudicatio n, focal deficits, bleeding, GI or symptoms. Consults Consult date: 05/24/19 Requesting physician: Mercedes Mayorga Review of Systems Review of Systems ROS Unobtainable: All systems reviewed & are unremarkable except as noted in HPI and below PFSH Medical History Atrial fibrillation (Chronic) Colon polyps GERD (gastroesophageal reflux disease) Hemorrhoids Hyperlipidemia Hypertension Metabolic syndrome Obesity (BMI 30-39.9) Surgical History Colonoscopy - IV Sedation 2001, 2007-Jesus Morse S/P ablation of atrial fibrillation (Acute) x2 S/P ORIF (open reduction internal fixation) fracture (Acute) Tonsillectomy 208 n/l Family History Mother Essential hypertension Neoplasm LIVER Father Diabetes Brother No problems noted. Brother No problems noted. Grandfather Neoplasm Grandmother No problems noted. Son Depression Social History Smoking/Tobacco Use Status: Former Tobacco Use Alcohol Intake: current Alcohol Intake frequency: holidays/special occasions only Alcohol type: beer Drug use: Never Substance use type: does not use Current gender identity: male Do you feel safe at home: Yes Do you feel safe in your relationship?: Yes Exam Narrative Exam Narrative: General: pleasant, no acute distress HEENT: Anicteric, mucus membranes moist Neck: Supple, normal JVP, brisk carotid upstrokes, no bruits Chest: Non-tender Lungs: Clear to auscultation bilaterally, no crackles or wheezes Cardiac: Tachycardic, irregular rhythm, normal S1S2, no murmurs Extremities: No clubbing, cyanosis or edema, equal pulses in all 4 extremities Skin: Warm and dry, no rashes Neuro: Alert and oriented x3, grossly intact Results Last Vital Signs Temp 36.8 C 05/24/19 08:45 Pulse 106 H 05/24/19 08:45 Resp 20 05/24/19 08:45 BP 134/104 H 05/24/19 02:53 Pulse Ox 100 05/23/19 20:01 Labs Result diagrams: 05/24/19 06:07 05/23/19 06:30 Labs: Laboratory Results - last 24 hr 05/24/19 06:07 WBC 8.43 RBC 4.99 Hgb 15.9 Hct 46.1 MCV 92.4 MCH 31.9 MCHC 34.5 RDW 13.2 Plt Count 228 MPV 10.8
[2019-05-24 09:43] LABS: Anion Gap 10.2 mmol/L (3-11); BUN 16 mg/dL (7-18); CO2 24.8 mmol/L (21.0-32.0); CREATININE 1.04 mg/dL (0.70-1.30); Calcium 8.8 mg/dL (8.5-10.1); Chloride 109 mmol/L (98-107); Glucose 88 mg/dL (70-100); Magnesium 2.3 mg/dL (1.8-2.4); Potassium 3.9 mmol/L (3.5-5.1); Sodium 144 mmol/L (136-145)
--- NOTE | 2019-05-24 10:04 | RESPIRATORY ---
05/24 STARTED CARDIOVERSION PRE HR 143 RR 20 SAT ON 2 L NC 100% ETC02 24 9:58 CANGED LITER FLOW TO 6 L AFTER CARDIOVERSION HR 83 RR 14 SATS ON 6 L 100% ETCO2 21 POST EKG DONE PT WAKING UP AND BREATHING WITH SATS OF 100% ON ROOM AIR
--- NOTE | 2019-05-24 10:05 | W.CARDVER ---
Date of service: 05/24/19 Cardioversion Preprocedure diagnosis: Atrial fibrillation with rapid premature ventricular response Postprocedure diagnosis: Normal sinus rhyth Anesthesia: MAC by anesthesiology Comments: After verbal and written informed consent were obtained the patient was successfully cardioverted with a single 200 J shock; the extra amount of energy delivered was 247 J. There were no immediate complications. Recommendations: Continue amiodarone 400 mg p.o. twice daily, switch to 400 mg a daily after 2 weeks of twice daily dosing; continue diltiazem 240 mg a daily; continue rivaroxaban 20 mg daily Follow-up with Dr. Liz from [facility] within 2 weeks after discharge.
[2019-05-24] MEDS: Amiodarone 200 MG TAB 400 MG PO (10:28)
[2019-05-24] MEDS: Multivitamin TAB 1 TAB PO (10:28)
[2019-05-24] MEDS: dilTIAZem CD 120 MG CAPCR 240 MG PO (10:29)
[2019-05-24] MEDS: Glucosamine/Chondroitin CAP 2 CAP PO (10:29)
--- NOTE | 2019-05-24 12:03 | ROE_ITS ---
PROCEDURE NOTE DATE OF PROCEDURE May 24, 2019 TYPE OF PROCEDURE Cardioversion. PREPROCEDURE DIAGNOSIS Atrial fibrillation with rapid ventricular response. POSTPROCEDURE DIAGNOSIS Sinus rhythm. ANESTHESIA MAC was provided by Anesthesia. COMMENTS After verbal and written informed consent were obtained, the patient was successfully cardioverted with a single 200-joule shock. The actual amount of energy delivered was 247 joules. There were no immediate complications. FOLLOWUP Continue amiodarone 400 mg p.o. b.i.d. for two weeks, then switch to 400 mg p.o. daily. Continue diltiazem 240 mg daily. Continue Xarelto 20 mg daily. Followup with Dr. Liz from [facility] within two weeks after discharge. Jaron Vargas M.D. EFREN/reinaldo T - 05/24/2019
--- NOTE | 2019-05-24 13:02 | DSE_ITS ---
Date of service: 05/24/19 Time of Service: 13:02 DS: Diagnosis Discharge Diagnosis (1) Paroxysmal atrial fibrillation: Status: Chronic Asessment and Plan: s/p Ablation on 05/10/19 at [facility], in RVR on pr esentation, now in NSR s/p cardioversion on 05/24/19, on maintenance amiodarone therapy. (2) Depression with anxiety: Status: Acute (3) Chest pain: Status: Resolved (4) history of adrenal adenoma by CT: Status: Chronic (5) HTN (hypertension): Status: Chronic (6) GERD (gastroesophageal reflux disease): Status: Chronic (7) Hyperlipidemia: Status: Chronic Discharge Plan Disposition Patient Disposition: HOME Condition: Stable Discharge Details Chief Complaint: Dizzy/Sync Clinical Impression: Rapid atrial fibrillation Reason For Visit: AFIB WITH RVR Admit Date/Time: 05/18/19 11:43 Admit Provider: Zeke Marin Attending Provider: Zeke Marin Primary Care Provider: Maco Santana ED Provider: Shayne Bales Hospital Course Hospital Course: Mr Peter is a 53 year old male with PMHx of atrial fibrillation s/p ablation at [facility] on 05/10/19, who was admitted to [facility] ICU on 05/18/19 following a syncopal episode which was thought to be due to symptomatic rapid atrial fibrillation. He ruled out for acute coronary syndrome. He did have occasional episodes of chest pain which are thought to be due to pericarditis following the procedure. This completely resolved with a short burst of NSAIDS at the hospital. The control of patient's heart rate l was difficult to achieve with cardizem IV, then PO, with the addition of beta blockers (in fact, the patient is intolerant of metoprolol as it makes him nauseated and dizzy without corresponding effects in blood pressure or heart rate). There is a concern that it is the patient's right adrenal adenoma could be triggering the high heart rates and plasma and urine metanephrine studies are pending as part of workup at the time of discharge. Cardiology consultation was pursued, as a result of which the patient was loaded with IV amiodarone, transitioned to PO amiodarone and successfully cardioverted on 05/24/19. Because the patient's intentions are to move to [place] immediately after discharge from [facility], he is not getting discharged with continous equipment monitor phototypesetting, but could certainly beneift from this as outpatient the moment he establishes care in [place]. He is recommended to follow up with EP in [place] within 2 weeks. He is asked to go to the nearest ER if he gets dizzy, syncopizes, becomes unbearably symtpomatic of his recurrent Afib. He is in NSR at the time of discharge. He needs a sleep study as outpatient as he is suspected to have obstructive sleep apnea. Finally, the patient did verbalize to me that he struggles with depression and anxiety. He lost his son to suicide 4 years ago, is going through a divorce, and is moving. He denies suicidal ideation. He would benefit from follow up with PCP for these issues and referral to a psychotherapist. He is not started on an SSRI on discharge due to concerns for lack of follow up. He is felt to safe for discharge home today from both medical and psychological stand points. The care for patient in addition to completion of his discharge summary took 1 hour on the day of discharge. Home Meds and New Rx's Prescriptions: New amiodarone 200 mg tablet See Rx Instructions .ROUTE .COMPLEX Qty: 70 RF: 0 Continued multivitamin 1 EACH tablet 1 ea PO DAILY RF: 0 btfianma-ttyl-pqfgzk-hyalur ac 1 EACH capsule 2 cap PO DAILY RF: 0 Xarelto 20 MG tablet 20 mg PO DAILY RF: 0 pantoprazole 40 mg tablet,delayed release (DR/EC) 40 mg PO DAILY RF: 0 diltiazem HCl 240 mg tablet extended release 24 hr 240 mg PO DAILY RF: 0 Discharge Instructions Instructions: Amiodarone (By mouth), Atrial Fibrillation (DC) Additional Instructions: Return to the nearest ER if you feel dizzy, have chest pain, shortness of breath, uncontrolled symptoms of Atrial fibrillation, or if you faint. Follow up with new PCP and cardiology within 1-2 weeks, if possible. Activity:: Activity as Tolerated Equipment/Supplies:: No Equipment Needed Diet:: Low Sodium Discharge Orders Discharge Orders: Discharge Order (Routine); Ordered 05/24/19 Ordered By: Mercedes Mayorga DS: Summary Status at Discharge Functional status at discharge: independent ambulation Overall status at discharge: patient is back to baseline Mental Status: mental status grossly normal Speech and Movement: speech and movement normal Mood: congruent mood and anxious mood Affect: normal affect Exam Narrative Exam Narrative: General: very pleasant middle-aged male, A&Ox3, laying in bed at a 30 degree angle, no tachypenia noted, does not appear as anxious as yesterday HEENT: EOMI, MMM Heart: RRR Lungs: CTAB GI: abdomen is soft, nontender, nondistended Extremities: no e/c/c BLE's Psych Mental Status: mental status grossly normal Speech and Movement: speech and movement normal Mood: congruent mood and anxious mood Affect: normal affect DS: Data Vitals/I&O Vitals and I&O: Vital Signs Temperature 36.6 C 05/24/19 11:37 Temperature Source Temporal Artery Scan 05/24/19 11:37 Pulse 77 05/24/19 11:37 Pulse 88 05/24/19 07:00 Respiratory Rate 20 05/24/19 11:37 Respiratory Effort 05/24/19 11:37 Respiratory Depth Normal 05/24/19 11:37 Respiratory Pattern Normal 05/24/19 11:37 Blood Pressure 116/83 05/24/19 11:37 Blood Pressure Mean 94 05/24/19 11:37 Blood Pressure Position Supine 05/24/19 11:37 Pulse Oximetry 99 05/24/19 11:37 Oxygen Delivery Method Room Air 05/24/19 11:37 Oxygen Flow Rate 0 05/24/19 11:37 Pain Level 0 05/24/19 11:37 Comment 05/20/19 23:17 Intake & Output 05/23/19 05/24/19 05/24/19 23:59 11:59 23:59 Intake Total 760 / 1558.333 0 / 0 Output Total 1795 / 3245 1600 / 1600 Balance -1035 / -1686.667 -1600 / -1600 Weight 117.2 kg Intake: Oral 760 / 1370 0 / 0 Output: Urine 1795 / 3245 1600 / 1600 Other: Urine Color Yellow Yellow Urine Appearance Clear Clear Voiding Methods Urinal Urinal Data Completed and Pending Completed studies during hospitalization [Text1]: CXR 05/18/2019: No evidence of acute cardiopulmonary disease. CT head 05/18/19: No acute intracranial abnormality is demonstrated. CT abdomen w/w/o contrast: FINDINGS CONSISTENT WITH 3 CM RIGHT ADRENAL ADENOMA. NO ADDITIONAL FINDINGS Echo 05/22/19: The patient was in atrial fibrillation throughout study. This rhythm can interfere with accurate global and segmental wall motion analysis. Summary: 1. Left ventricle: The cavity size was normal. Wall thickness was increased in a pattern of moderate to severe LVH. Systolic function was at the lower limits of normal. The estimated ejection fraction was 50-55%. Wall motion was normal; there were no regional wall motion abnormalities. 2. Right ventricle: The cavity size was at the upper limits of normal. Systolic function was normal. 3. Left atrium: The atrium was severely dilated. 4. Inferior vena cava: The vessel was patent and normal in size. The respirophasic diameter changes were in the normal range (greater than or equal to 50%), consistent with normal central venous pressure. Pending studies at discharge: Urine and plasma metanephrines, aldosteron, renin. Labs on day of discharge: Labs from last 24 hours 05/24/19 05/24/19 06:07 06:07 WBC 8.43 RBC 4.99 Hgb 15.9 Hct 46.1 MCV 92.4 MCH 31.9 MCHC 34.5 RDW 13.2 Plt Count 228 MPV 10.8 Sodium 144 Potassium 3.9 Chloride 109 H Carbon Dioxide 24.8 Anion Gap 10.2 BUN 16 Creatinine 1.04 Estimated GFR/1.73 m2 >= 60.00 Glucose 88 Calcium 8.8 Magnesium 2.3 PFSH Medical History Atrial fibrillation (Chronic) Colon polyps GERD (gastroesophageal reflux disease) Hemorrhoids Hyperlipidemia Hypertension Metabolic syndrome Obesity (BMI 30-39.9) Surgical History Colonoscopy - IV Sedation 2001, 2007-[facility] S/P ablation of atrial fibrillation (Acute) x2 S/P ORIF (open reduction internal fixation) fracture (Acute) Tonsillectomy 208 n/l Family History Mother Essential hypertension Neoplasm LIVER Father Diabetes Brother No problems noted. Brother No problems noted. Grandfather Neoplasm Grandmother No problems noted. Son Depression Social History Smoking/Tobacco Use Status: Former Tobacco Use Alcohol Intake: current Alcohol Intake frequency: holidays/special occasions only Alcohol type: beer Drug use: Never Substance use type: does not use Current gender identity: male Do you feel safe at home: Yes Do you feel safe in your relationship?: Yes
--- NOTE | 2019-05-24 16:45 | PDOC.CMDIS ---
LACE Index Scoring Tool - Questions: Length of Stay (in days): 4 - 6 Acuity (Admit via E.D.?): Yes E.D. Visits: 1 - Answers: Total Score: 8 Risk of Readmission: Low Risk Care Management Discharge Reason for Hospitalization: Recurrent Afib, Syncope Discharge Plan: Rohit will return home with no additional services anticipated at this time. He will transport via private vehicle with a friend and follow up with his community based providers. Rohit has a relocation plan of moving to [place]. He is independent in the community with all activities of daily life. Patient/Family Education Needs: Review discharge instructions, discuss Ask Me Three.
[2019-05-24 18:51] LABS: Cortisol, U 12 mcg/24 h (3.5-45); Urine Volume 4800 mL
[2019-05-26 12:09] LABS: Metanephrine, Free <0.20 nmol/L (<0.50); Normetanephrine, Free 0.46 nmol/L (<0.90)
[2019-05-26 18:20] LABS: Creatinine, Random Ur 159 mg/dL; Total Metanephrine/Creatinine 296 mcg/g Cr
[2019-05-27 17:44] LABS: Renin Activity, Plasma 1.8 ng/mL/h
== END 2019-05-24 14:30 | disposition home or self-care (01) | DRG 309 ==
LOC: ER 11:42 → ICU 14:26
PROVIDERS: Emergency Medicine; Family Medicine; Admitting Provider Internal Medicine; Emergency Provider Emergency Medicine; PCP Emergency Medicine; Visit Provider Internal Medicine
DX: I48.1 Persistent atrial fibrillation (principal); I97.89 Other postprocedural complications and disorders of the circulatory system, not elsewhere classified; I31.9 Disease of pericardium, unspecified; Z79.01 Long term (current) use of anticoagulants; Z98.890 Other specified postprocedural states; F41.8 Other specified anxiety disorders; R07.9 Chest pain, unspecified; I10 Essential (primary) hypertension; K21.9 Gastro-esophageal reflux disease without esophagitis; E78.5 Hyperlipidemia, unspecified; Y83.8 Other surgical procedures as the cause of abnormal reaction of the patient, or of later complication, without mention of misadventure at the time of the procedure; D35.01 Benign neoplasm of right adrenal gland; E66.9 Obesity, unspecified; I25.10 Atherosclerotic heart disease of native coronary artery without angina pectoris
CPT/HCPCS: 92960; 36415; 80048; 80053; 85027; 96361; 96365; 96366; 96375; 99222; 99232; 99233; 99239; 99255; 99285; 70450; 71046; 74170; 81003; 81015; 81050; 82088; 82530; 83735; 83789; 83835; 84244; 84443; 84484; 85025; 93005; 93010; 93306; J1885; J2060; J3490

== ENCOUNTER 2019-05-26 20:57 | Emergency (ER) | payer BC, SELFPAY ==
[2019-05-26 21:07] VITALS: BP 142/90; PULSE 70; RESP 16; TEMP 36.6; O2SAT 96
--- NOTE | 2019-05-26 21:15 | W.ED.GENAD ---
Discharge Plan Disposition Patient Disposition: HOME Condition: Good Discharge Details Chief Complaint: Cellulitis Clinical Impression: Cellulitis Primary Care Provider: Maco Santana ED Provider: Chriss Bean Home Meds and New Rx's Prescriptions: New cephalexin [Keflex] 500 mg capsule 500 mg PO QID 10 Days Qty: 40 RF: 0 No Action multivitamin 1 EACH tablet 1 ea PO DAILY RF: 0 jhfntlel-eqwe-vbbjtz-hyalur ac 1 EACH capsule 2 cap PO DAILY RF: 0 Xarelto 20 MG tablet 20 mg PO DAILY RF: 0 pantoprazole 40 mg tablet,delayed release (DR/EC) 40 mg PO DAILY RF: 0 diltiazem HCl 240 mg tablet extended release 24 hr 240 mg PO DAILY RF: 0 amiodarone 200 mg tablet See Rx Instructions .ROUTE .COMPLEX Qty: 70 RF: 0 Discharge Instructions Instructions: Cellulitis (ED) Additional Instructions: You have cellulitis on your arm. Please take the Keflex every 6 hours as directed. If you notice any worsening of your symptoms, or any new symptoms such as spreading of the redness, worsening pain, vomiting, diarrhea, fever, chills, shortness of breath, chest pain, numbness, weakness, or fainting , please return immediately to the emergency department for reevaluation. Please follow up with your primary care provider as soon as possible for reassessment and reevaluation. As always, it was a pleasure participating in your medical care today. Referrals: Maco Santana, DO [Primary Care Provider] - Discharge Data Discharge Date/Time-TO BE ENTERED AT DEPARTURE: 05/26/19 21:26 Medical Decision Making This is a very pleasant 53-year-old male who presents today for evaluation of mild cellulitis on his left forearm. He was admitted here for 7 days where he had a peripheral IV located at that spot, after it was removed there was no significant abnormalities aside for small amount of redness cellulitis and warmth that started on the last 24 to 48 hours. Physical exam demonstrates a small area of redness, no fluctuance, mild induration surrounding it. Bedside limited ultrasound demonstrates no evidence of significant or large fluid collection. There is mild cobblestoning. No area of significance that would benefit from incision and drainage. Signs and symptoms at this time appear clinically consistent with mild cellulitis. With no evidence of abscess we will start on Keflex and hold on Bactrim. We have outlined the area of erythema, we discussed red flags which to return. We will give the first dose of Keflex here. I have extensively reviewed the treatment plan and discharge instructions with the patient. I have addressed all patient concerns at this time. The patient was made aware of what symptoms to monitor for that would warrant a return to the emergency department. Discussed the plan with the patient, they demonstrate verbal understanding and agreement with our assessment and plan at this time. HPI General Date/Time Provider Initiated Documentation: 05/26/19 21:03. HPI Narrative: This is a very pleasant 53-year-old male with a notable past medical history of recent admission for atrial fibrillation with RVR, currently on amiodarone and Cardizem, who presents for mild cellulitis in his left forearm. He was recently discharged a few days ago. He had a peripheral IV in his forearm for 7 days while he was on the ICU floor, which was removed without difficulty. Unfortunately since then he has developed some mild redness and erythema and warmth in that area. He denies any symptoms of fever, chills, significant arm pain. He denies any numbness tingling or weakness. He denies any other complaints at this time. He has been taking his other medications as directed. He denies any history of IV or illicit drug use. He denies any history of MRSA. Of note he states that his heart rate has been well controlled since discharge. He is still trying to move to [place] within the next week. Related Data Home Medications Medication Instructions Recorded Confirmed zruhedkr-sjur-quubjg-hyalur ac 2 cap PO DAILY cap 02/15/13 05/18/19 multivitamin 1 ea PO DAILY tab 02/15/13 05/18/19 Xarelto 20 mg PO DAILY tab-cap NS 04/01/18 05/18/19 diltiazem HCl 240 mg PO DAILY 05/18/19 05/18/19 pantoprazole 40 mg PO DAILY 05/18/19 05/18/19 amiodarone See Rx Instructions .ROUTE 05/24/19 .COMPLEX #70 tab cephalexin [Keflex] 500 mg PO QID 10 Days #40 cap 05/26/19 Previous Rx's Medication Instructions Recorded amiodarone See Rx Instructions .ROUTE 05/24/19 .COMPLEX #70 tab cephalexin [Keflex] 500 mg PO QID 10 Days #40 cap 05/26/19 Allergies Allergy/AdvReac Type Severity Reaction Status Date / Time atorvastatin calcium AdvReac Unknown Myalgias Verified 05/18/19 06:28 [From Lipitor] WALNUT Allergy Unknown Uncoded 05/18/19 06:28 General Stated Complaint: Cellulitis GEORGE: 4 Review of Systems Review of Systems ROS Unobtainable: All systems reviewed & are unremarkable except as noted in HPI and below PFSH Social History Smoking/Tobacco Use Status: Former Tobacco Use Alcohol Intake: current Alcohol Intake frequency: holidays/special occasions only Alcohol type: beer Drug use: Never Substance use type: does not use Current gender identity: male Do you feel safe at home: Yes Do you feel safe in your relationship?: Yes Exam Narrative Exam Narrative: 1.Const: Well-nourished, Well-developed, appearing stated age 2.Eyes: PERRL, no conjunctival injection, and symmetrical lids. 3.ENT: Atraumatic external nose and ears. Moist MM. Neck: Symmetric, trachea midline, No thyromegaly. 4.CVS: +S1/S2, No murmurs or gallops. Peripheral pulses 2+ and equal in all extremities. Brisk capillary refill in all extremities. 5.RESP: Unlabored respiratory effort. Clear to auscultation bilaterally. No wheezes rales or rhonchi 6.GI: Soft, Nontender/Nondistended, No hepatosplenomegaly. No guarding or rebound. 7.MSK: Normocephalic/Atraumatic, Extremities w/o deformity or ttp No cyanosis or clubbing, Normal movement of all extremities 8.Skin: Warm, Dry. Patient's left forearm demonstrates a small area of redness and swelling at the site of the peripheral IV insertion on his left forearm. Diameter of circumferential erythema is 1 cm. Very small amount of induration and minimal redness is present around this extending roughly 2 to 3 cm peripherally. No fluctuance whatsoever. No evidence of abscess. No significant tenderness. Normal sensation, and capillary refill distal to this. Bedside limited portable ultrasound shows no evidence of significant fluid collection. 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 Sensation grossly intact, no focal neurologic deficits. 10.Psych: (AAO) x3. Appropriate mood and affect Course Vital Signs Vital signs: Vital Signs Temperature 36.6 C 05/26/19 21:07 Pulse 70 05/26/19 21:07 Respiratory Rate 16 05/26/19 21:07 Blood Pressure 142/90 H 05/26/19 21:07 Pulse Oximetry 96 05/26/19 21:07 Temperature 36.6 C 05/26/19 21:07 Temperature Source Skin 05/26/19 21:07 Pulse 70 05/26/19 21:07 Respiratory Rate 16 05/26/19 21:07 Respiratory Effort Non-Labored 05/26/19 21:12 Blood Pressure 142/90 H 05/26/19 21:07 Blood Pressure Position Sitting 05/26/19 21:07 Pulse Oximetry 96 05/26/19 21:07 Oxygen Delivery Method Room Air 05/26/19 21:07 Oxygen Flow Rate 0 05/26/19 21:07
[2019-05-26] MEDS: Cephalexin 500 MG CAP PO (21:19)
[2019-05-26 21:22] VITALS: BP 142/90; PULSE 70; RESP 16; TEMP 36.6; O2SAT 96
== END 2019-05-26 21:26 | disposition home or self-care (01) ==
PROVIDERS: Emergency Provider Student in an Organized Health Care Education/Training Program; PCP Emergency Medicine
DX: L03.114 Cellulitis of left upper limb (principal); I48.91 Unspecified atrial fibrillation; I10 Essential (primary) hypertension
CPT/HCPCS: 99283

== ENCOUNTER 2019-06-02 12:03 | Observation (INO) | payer BC, SELFPAY ==
[2019-06-02] VITALS (73 sets, daily range): BP systolic 111–159; BP diastolic 74–107; PULSE 113–142; RESP 10–27; TEMP 36.4–36.7; O2SAT 90–100
--- NOTE | 2019-06-02 12:10 | ED.GENADUL_ITS ---
Discharge Plan Disposition Patient Disposition: [facility] INPATIENT Condition: Serious Discharge Details Chief Complaint: Palpitatns Clinical Impression: Atrial flutter, BRBPR (bright red blood per rectum), Syncope Admit Date/Time: 06/02/19 18:30 Admit Provider: Derrek Barton Attending Provider: Derrek Barton Primary Care Provider: Maco Santana ED Provider: Reggie Brito Discharge Data Discharge Date/Time-TO BE ENTERED AT DEPARTURE: 06/02/19 19:10 Medical Decision Making <WANG Knight - Last Filed: 06/03/19 08:10> Patient is a 53-year-old male with history of atrial fibrillation, depression, a nxiety, CAD, cardiomyopathy, hypertension, GERD, hyperlipidemia, LVH, presenting today with chief complaint of palpitations. He reports that palpitations began shortly after presentation here when he was on his walk. Reports that he is been doing 1/2 to 2 mile walks daily since recent discharge from hospital. States his symptoms came on suddenly and he felt short of breath and presyncopal. Reports that he did lower himself to the ground. States the palpitations continue at this time. Feels that he is likely in atrial fibrillation. Does report that he had a cardiac ablation for his atrial fibrillation over the summer and had this for has continued to have symptoms. He is currently on amiodarone and diltiazem. States that the amiodarone is a new medication since the time of discharge. Denies any nausea/vomiting. Did not actually fall, no syncopal episode. Denies any calf tenderness. Reports that this morning he noted some hemoptysis. He has not been having any other URI-like symptoms. On exam, he is resting comfortably. Patient is tachycardic with a rate of 119. Otherwise, normal cardiac sounds, lungs are clear. Abdomen is benign, no carotid bruit. I am concerned with the hemoptysis, tachycardia and shortness of breath that he may have a PE especially in the setting of recent hospitalization. He is anticoagulated on Xarelto. States he has been taking his medications as prescribed has not missed any doses. Plan for a CTA of his chest, laboratory evaluation and hydration of the patient. EKG was reviewed by Dr. Brito. Patient is noted to be in sinus tachycardia with a rate of 125. There is concern for possible ST elevation equal to or less than 1 mm in leads V1 and V2. The reading was initially concerning for possible atrial flutter but no further examinations not consistent. FINDINGS: Images obtained through the upper abdomen show a 3 cm right adrenal mass measuring about 2 Hounsfield units average consistent with an adenoma. The visualized portions of the liver, spleen and pancreas appear normal. Visualized portions of the kidneys appear normal. Thoracic and abdominal aorta and major branches appear intact; no evidence of aneurysm or dissection. No evidence of pulmonary embolic disease. No mediastinal or hilar adenopathy. Tracheobronchial tree appears intact. Lungs are hypoinflated but clear. No pleural effusion or pneumothorax. IMPRESSION: No evidence of pulmonary embolic disease or other acute thoracic abnormality Labs reviewed patient does not have any leukocytosis. Hemoglobin is elevated at 18.4. INR 1.2. No electrolyte abnormalities. Creatinine is elevated 1.42 which is unusual for the patient. Troponin normal at less than 0.05. Anion gap 13. Discussed these findings with the patient. Is reassuring that he does not have an elevation in his troponin nor does he have evidence of pulmonary embolism on his CT. However, patient continues to be tachycardic in the 1 teens. He is asymptomatic still in a supine position when he ambulates to the bathroom he does experience palpitations and feels weaker than typical. Plan to obtain a 3- hour troponin, continue to hydrate the patient. Repeat troponin remains less than 0.05. Repeat EKG was reviewed by Dr. Brito. Patient remains tachycardic with a rate of 115, appears to be in sinus tach. The minor change in the ST in V1 and V2 remain persistent. Discussed admission with the patient and he adamantly refuses. We did discuss risks and benefits associated with this. He has responded slightly to fluids and continues to receive a second liter bolus. I advised that we will continue with the second liter and road test the patient to evaluate if his symptoms are improving as well as tachycardia. This may be associated with the dehydration especially with the patient's acute kidney injury. At the end of my shift, care was transitioned to Dr. Brito with reevaluation and disposition pending. <Reggie Brito MD - Last Filed: 06/03/19 09:03> 18:00 -- Care signed out by WANG Sher. Please see her documentation regarding initial ED presentation and course. Labs were reviewed:. Hemoglobin is normal. Troponin x2 negative. He does have acute elevation of creatinine. TSH was elevated but free T4 is normal. Patient is persistently tachycardic despite 2 L of IV fluid. He is normotensive. Patient notes some blurred vision but is otherwise asymptomatic. He denies chest pain. Second ECG today was reviewed and interpreted by me and is concerning for aflutter although rate is 117 bpm and there is distinct T waves noted in V3. Given his syncopal episode today in combination with bright red blood per rectum and hemoptysis on Xarelto, persistent tachycardia, and slow flutter, plan will be to admit the patient for further work-up and treatment. I spoke with Dr. Barton, hospitalist, who will admit the patient. HPI <WANG Knight - Last Filed: 06/03/19 08:10> General Mode of arrival: ambulatory . Date/Time Provider Initiated Documentation: 06/02/19 12:09 . Limitations to Documentation: no limitations . Information obtained by: patient and RN notes reviewed . History of Present Illness 53 year old M presents to the emergency department with the chief complaint of palpitations, described as moderate and similar to prior episodes (reports feels like atrial fibrillation), Patient started experiencing this minute(s) and it has been constant. No relieving factors improve symptom(s), No exacerbating factors reported . Patient notes shortness of breath; denies chest pain, cough, diaphoresis, fever/chills, headaches, loss of appetite, nausea/vomiting, rash and syncope (patient presyncopal, no actual episode of syncope, has had this associated with afib). Patient did receive the following treatments prior to arrival, none Related Data Home Medications Medication Instructions Recorded Confirmed rpyvfcgp-piqr-nozyfx-hyalur ac 2 cap PO DAILY cap 02/15/13 06/02/19 multivitamin 1 ea PO DAILY tab 02/15/13 06/02/19 Xarelto 20 mg PO .WITH SUPPER tab-cap NS 04/01/18 06/02/19 diltiazem HCl 240 mg PO AC 05/18/19 06/02/19 pantoprazole 40 mg PO DAILY 05/18/19 06/02/19 amiodarone See Rx Instructions .ROUTE 05/24/19 06/02/19 .COMPLEX #70 tab cephalexin [Keflex] 500 mg PO QID 10 Days #40 cap 05/26/19 06/02/19 Previous Rx's Medication Instructions Recorded amiodarone See Rx Instructions .ROUTE 05/24/19 .COMPLEX #70 tab cephalexin [Keflex] 500 mg PO QID 10 Days #40 cap 05/26/19 Allergies Allergy/AdvReac Type Severity Reaction Status Date / Time atorvastatin calcium AdvReac Unknown Myalgias Verified 05/18/19 06:28 [From Lipitor] WALNUT Allergy Unknown Uncoded 05/18/19 06:28 General GEORGE: 4 Review of Systems <WANG Knight - Last Filed: 06/03/19 08:10> Constitutional Constitutional: Reports as per HPI, Denies chills, Denies fever(s), Denies headache(s), Denies lethargy and Denies poor appetite Eyes Eyes: Denies change in vision ENT Ears, Nose, Mouth, and Throat: Denies dizziness and Denies headache(s) Cardiovascular Cardiovascular: Reports as per HPI, Denies dyspnea and Denies dyspnea on exertion Respiratory Respiratory: Reports as per HPI, Denies chest congestion, Denies cough, Denies pain on inspiration, Denies pain with cough, Denies dyspnea, Denies dyspnea on exertion and Denies wheezing Gastrointestinal Gastrointestinal: Reports as per HPI, Denies abdominal pain, Denies diarrhea, Denies nausea and Denies vomiting Genitourinary Genitourinary: Denies system reviewed and no additional complaints, except as docu (denies change in urinary habits) Musculoskeletal Musculoskeletal: Reports as per HPI and Denies back pain Integumentary/Breasts Skin/Breast: Reports as per HPI and Denies rash Neurologic Neurologic: Reports as per HPI, Denies dizziness and Denies headache(s) Allergic/Immunologic Allergic/Immunologic: Denies wheezing PFSH <WANG Knight - Last Filed: 06/03/19 08:10> Medical History Atrial fibrillation (Chronic) Atrial fibrillation (Chronic) Colon polyps GERD (gastroesophageal reflux disease) Hemorrhoids Hyperlipidemia Hypertension Metabolic syndrome Obesity (BMI 30-39.9) Surgical History Colonoscopy - IV Sedation 2001, 2007Darin Morse S/P ablation of atrial fibrillation (Acute) x2 S/P ORIF (open reduction internal fixation) fracture (Acute) Tonsillectomy 208 n/l Social History Smoking/Tobacco Use Status: Former Tobacco Use Alcohol Intake: current Alcohol Intake frequency: holidays/special occasions only Alcohol type: beer Drug use: Never Substance use type: does not use Current gender identity: male Do you feel safe at home: Yes Do you feel safe in your relationship?: Yes Exam <WANG Knight - Last Filed: 06/03/19 08:10> Const General: cooperative, healthy appearing, comfortable, no acute distress and well developed Nutritional Appearance: average body habitus and well nourished Orientation: alert, awake and oriented x3 HENMT Head: normal to inspection Ears: hearing grossly normal bilaterally Mouth: moist mucous membranes Chest Chest: normal inspection of the chest, normal palpation of entire chest wall and no crepitus Resp Effort & Inspection: normal respiratory effort, able to speak in complete sentences and no respiratory distress Auscultation: clear to auscultation bilaterally, no rales, no rhonchi and no wheezes Cardio Rate: tachycardic (120) Rhythm: regular rhythm Heart Sounds: S1 normal, S2 normal, no gallops, no murmurs and no rubs GI Inspection: normal to inspection, no edema and non-distended Palpation: soft, no hepatosplenomegaly, not firm, no guarding, not rigid and nontender Auscultation: normal bowel sounds Back/Spine/Pelvis Back: no CVA tenderness Thoracic/Lumbar Spine: thoracic and lumbar spine normal to inspection Skin General skin exam: no rashes or lesions noted Trauma: no lacerations or abrasions Neuro General: alert, awake and oriented x3 Cognition: normal cognition Speech: speech normal Gait: normal gait Extrem General: normal to inspection, normal capillary refill, no pedal edema, no calf tenderness and normal gait Psych Appearance: grossly normal and well kempt Mental Status: mental status grossly normal Speech and Movement: speech and movement normal Sign Out <AWNG Knight - Last Filed: 06/03/19 08:10> Sign Out Data: Sign Out Comment: Care transition to Dr. Brito. Troponin x2 as well as EKGs are unchanged. No PE on CTA. Acute kidney injury noted on labs. He is currently receiving his second liter fluid. Awaiting to see any response in regard to his tachycardia as well as his symptomatic tachycardia with ambulation. Last updated by Minnie Sher PA at 06/02/19 16:22
--- NOTE | 2019-06-02 12:25 | DI.CT_ITS ---
EXAM: CT CHEST PE CTA CLINICAL HISTORY: palpitations, hemoptysis, presyncope. TECHNIQUE: CT angiography of the chest was performed with a bolus infusion of 100 cc of Omnipaque [address] angiography was performed with multislice acquisition and multiplanar and/or 3D reconstructi ons. COMPARISON: CT ABDOMEN WO/W from 05/18/2019 FINDINGS: Images obtained through the upper abdomen show a 3 cm right adrenal mass measuring about 2 Hounsfield units average consistent with an adenoma. The visualized portions of the liver, spleen and pancreas appear normal. Visualized portions of the kidneys appear normal. Thoracic and abdominal aorta and gabriel or branches appear intact; no evidence of aneurysm or dissection. No evidence of pulmonary embolic disease. No mediastinal or hilar adenopathy. Tracheobronchial tree a ppears intact. Lungs are hypoinflated but clear. No pleural effusion or pneumothorax. IMPRESSION: No evidence of pulmonary embolic disease or other acute thoracic abnormality
[2019-06-02] MEDS: Normal Saline 1,000 ML 1000 ML IV (12:32)
[2019-06-02 12:38] LABS: Abs Immature Grans 0.03 k/cumm (0.0-0.09); Absolute Basophil Count 0.02 k/cumm (0.0-0.2); Absolute Eosinophil Count 0.06 k/cumm (0.0-0.7); Absolute Lymphocyte Count 1.24 k/cumm (1.2-3.4); Absolute Monocyte Count 0.51 k/cumm (0.11-0.7); Absolute Neutrophil Count 8.06 k/cumm (1.2-6.7); Basophils % 0.2; Eosinophils % 0.6; HCT 52.2 % (40.0-50.0); HGB 18.4 g/dL (13.5-17.5); Immature Grans % 0.3; Lymphocytes % 12.5; Mean Corp. HGB Concentration 35.2 g/dL (32.0-36.0); Mean Corpuscular Hemoglobin 31.8 pg (27.0-33.0); Mean Corpuscular Volume 90.2 fL (80-95); Mean Platelet Volume 9.9 fL (8.0-11.0); Monocytes % 5.1; Neutrophils % 81.3; Platelet Count 358 x1000/uL (130-400); RBC 5.79 m/cumm (4.50-6.00); RBC Distribution Width 13.3 % (11.8-14.1); White Blood Cell Count 9.92 k/cumm (4.4-10.8)
[2019-06-02 13:04] LABS: ALT 42 U/L (16-63); AST 33 U/L (15-37); Albumin 4.3 g/dL (3.4-5.0); Alkaline Phosphatase 101 U/L (46-116); Anion Gap 13.4 mmol/L (3-11); BUN 16 mg/dL (7-18); Bilirubin, Total 1.3 mg/dL (0.2-1.0); CO2 25.6 mmol/L (21.0-32.0); CREATININE 1.42 mg/dL (0.70-1.30); Calcium 9.7 mg/dL (8.5-10.1); Chloride 104 mmol/L (98-107); Estimated GFR 52.35 (mL/min/1.73m2); Glucose 107 mg/dL (70-100); Potassium 3.8 mmol/L (3.5-5.1); Sodium 143 mmol/L (136-145); TSH 6.71 uIU/mL (0.36-3.74); Total Protein 8.3 g/dL (6.4-8.2)
[2019-06-02 13:07] LABS: Troponin I < 0.05 ng/mL (0.00-0.06)
[2019-06-02] MEDS: LORazepam 2 MG/ML VIAL 1 MG IVP (13:21)
[2019-06-02 13:51] LABS: FREE T4 1.03 ng/dL (0.76-1.46)
[2019-06-02 14:15] LABS: INR 1.2 (0.9-1.1); PTT Activated 32.6 sec (21.0-31.4); Prothrombin Time 12.1 sec (9.3-11.0)
[2019-06-02] MEDS: Lactated Ringers 1,000 ML 1000 ML IV (15:30)
[2019-06-02 15:51] LABS: Troponin I < 0.05 ng/mL (0.00-0.06)
--- NOTE | 2019-06-02 15:56 | NUR.NOTE ---
Nursing Note: meal tray ordered with permission of WANG Hartman
--- NOTE | 2019-06-02 16:46 | NUR.NOTE ---
Nursing Note: pt ate entire meal tray, states that he feels moderate improvement in symptoms.
--- NOTE | 2019-06-02 17:15 | NUR.NOTE ---
Nursing Note: pt ambulated around vazquez with portable pulse oximetry. HR maintained at 120 bpm throughout walking. pt walked without difficulty. steady gait noted.
--- NOTE | 2019-06-02 18:16 | W.PM.HP.N ---
Date of service: 06/02/19 Time of Service: 18:17 Assessment and Plan Assessment and plan (1) Pre-syncope: Status: Acute Assessment and plan: Pre-syncope. I think there is a high lilihood that patient's spell represents recurrent episode of AF, which has now (regarddless) setttled into what looks veery much like 2:1 flutter. Since he is asymptomatic I think a reasonable approach would be to increase jayson blockade -- with Verapamil. Will give single dose 40 mg now and reassess. May be candidate for conversion but given history may need to ousue ratee control strategy long teerm. As to episode off hemoptysis -- seems to have been relatively slight, without clinical impacct. Probably relateed to recent NOAC. Will monitor, but I see no indication at present that we need to discontinue. History of Present Illness History of Present Illness Chief Complaint: pre-syncope Narrative: 53 male with h/o PAF, s/p ablation 05/18 and by his report five cardioversions, mjost recently 05/18 at [facility]. On Amiodarone, Cardizem and Xarelto. Here today with episode of palpitation and pre-syncope, ideentical (he say) to prior episodes of AF. Here in ER his heart rate has been consitent at about 120. He also had an epsiode this morning in which he noted a sens of phlegm and then coughed up a single clod of blood. None since, no SOB or chest pain. In ER had negative CTA. At presentt patient feels fine. To my eye EKG shows clearly to be 2:1 flutter, most evident in lead V2. Review of Systems Review of Systems ROS Unobtainable: All systems reviewed & are unremarkable except as noted in HPI and below PFSH Medical History Atrial fibrillation (Chronic) Atrial fibrillation (Chronic) Colon polyps GERD (gastroesophageal reflux disease) Hemorrhoids Hyperlipidemia Hypertension Metabolic syndrome Obesity (BMI 30-39.9) Surgical History Colonoscopy - IV Sedation 2001, 2007-Jesus Morse S/P ablation of atrial fibrillation (Acute) x2 S/P ORIF (open reduction internal fixation) fracture (Acute) Tonsillectomy 208 n/l Social History Smoking/Tobacco Use Status: Former Tobacco Use Alcohol Intake: current Alcohol Intake frequency: holidays/special occasions only Alcohol type: beer Drug use: Never Substance use type: does not use Current gender identity: male Do you feel safe at home: Yes Do you feel safe in your relationship?: Yes Meds Home Medications and Allergies Home Medications Medication Instructions Recorded Confirmed Type wfsbkbbe-rsjz-qvajof-hyalur ac 2 cap PO DAILY cap 02/15/13 06/02/19 History multivitamin 1 ea PO DAILY tab 02/15/13 06/02/19 History Xarelto 20 mg PO DAILY tab-cap NS 04/01/18 06/02/19 History diltiazem HCl 240 mg PO DAILY 05/18/19 06/02/19 History pantoprazole 40 mg PO DAILY 05/18/19 06/02/19 History amiodarone See Rx Instructions .ROUTE 05/24/19 06/02/19 Rx .COMPLEX #70 tab cephalexin [Keflex] 500 mg PO QID 10 Days #40 cap 05/26/19 06/02/19 Rx Allergies Allergy/AdvReac Type Severity Reaction Status Date / Time atorvastatin calcium AdvReac Unknown Myalgias Verified 05/18/19 06:28 [From Lipitor] WALNUT Allergy Unknown Uncoded 05/18/19 06:28 Exam Narrative Exam Narrative: 126/86, 120, 14, 36.5. HEENT unremarkable; necck supple, lungs clear; heart tachy/regular; abdomen soft NT; extr no edema pulse equal. CSP performed bilateral without effect Results Labs Result diagrams: 06/02/19 12:16 06/02/19 12:16 Labs: Laboratory Results - last 24 hr 06/02/19 06/02/19 06/02/19 12:16 12:16 12:16 WBC 9.92 RBC 5.79 Hgb 18.4 H Hct 52.2 H MCV 90.2 MCH 31.8 MCHC 35.2 RDW 13.3 Plt Count 358 D MPV 9.9 Immature Gran % 0.3 Neutrophils % 81.3 Lymphocytes % 12.5 Monocytes % 5.1 Eosinophils % 0.6 Basophils % 0.2 Absolute Neutrophils 8.06 H Absolute Lymphocytes 1.24 Absolute Monocytes 0.51 Absolute Eosinophils 0.06 Absolute Basophils 0.02 PT 12.1 H INR 1.2 H APTT 32.6 H Sodium 143 Potassium 3.8 Chloride 104 Carbon Dioxide 25.6 Anion Gap 13.4 H BUN 16 Creatinine 1.42 H Estimated GFR/1.73 m2 52.35 Glucose 107 H Calcium 9.7 Magnesium 2.0 Total Bilirubin 1.3 H AST 33 ALT 42 Alkaline Phosphatase 101 Troponin I < 0.05 Total Protein 8.3 H Albumin 4.3 TSH 6.71 H Free T4 06/02/19 06/02/19 12:16 15:25 WBC RBC Hgb Hct MCV MCH MCHC RDW Plt Count MPV Immature Gran % Neutrophils % Lymphocytes % Monocytes % Eosinophils % Basophils % Absolute Neutrophils Absolute Lymphocytes Absolute Monocytes Absolute Eosinophils Absolute Basophils PT INR APTT Sodium Potassium Chloride Carbon Dioxide Anion Gap BUN Creatinine Estimated GFR/1.73 m2 Glucose Calcium Magnesium Total Bilirubin AST ALT Alkaline Phosphatase Troponin I < 0.05 Total Protein Albumin TSH Free T4 1.03 Last Vital Signs Temp 36.5 C 06/02/19 12:07 Pulse 115 H 06/02/19 17:00 Resp 17 06/02/19 17:10 BP 126/86 06/02/19 17:00 Pulse Ox 98 06/02/19 17:10
[2019-06-02] MEDS: Verapamil 80 MG TAB 40 MG PO ×2 (18:52→20:22)
[2019-06-02] MEDS: Cephalexin 500 MG CAP PO (20:22)
[2019-06-02] MEDS: Normal Saline Flush 10 ML SYR IVP (20:23)
[2019-06-02] MEDS: Amiodarone 200 MG TAB ×2 (20:23)
[2019-06-02] MEDS: Rivaroxaban 10 MG TABLET PO ×2 (20:23)
[2019-06-02] MEDS: Verapamil 80 MG TAB PO (23:41)
[2019-06-02] MEDS: Zolpidem 5 MG TAB PO (23:41)
[2019-06-03] VITALS (23 sets, daily range): BP systolic 103–166; BP diastolic 68–112; PULSE 108–122; RESP 13–36; TEMP 36.6–36.8; O2SAT 95–97
[2019-06-03] MEDS: Verapamil 80 MG TAB PO ×2 (06:53→14:11)
[2019-06-03] MEDS: Pantoprazole 40 MG TABCR PO (08:13)
[2019-06-03] MEDS: Cephalexin 500 MG CAP PO ×3 (08:14→16:25)
[2019-06-03] MEDS: Normal Saline 1,000 ML 150 ML IV ×2 (08:14→14:24)
--- NOTE | 2019-06-03 08:15 | W.PM.PROGNOT ---
Date of Service Date of service: 06/03/19 Time of Service: 08:15 Assessment and Plan Assessment and plan (1) Atrial fibrillation and flutter: Status: Acute Assessment and plan: with rapid ventricular response. The patient is difficult to manage from the electrophysiology stand point. He is s/p several afib ablations, most recently 05/10/19 at [facility], and s/p multiple cardioversions, most recently at our facility on 05/24/19. He remains on anticoagulation with xarelto, amiodarone 400 mg PO daily. His cardizem CD was changed over to verapamil 80 mg PO q 8 hrs. His HR remains uncontrolled, and he does become symptomatic with activity. Case was discussed with [facility] cardiology, and Dr Gordillo agrees to accept the patient in transfer to cardiology service once a bed becomes available, which is not expected for 24-48 hours. The patient is stable enough medically where this time frame is acceptable. Monitor for any recurrence of hemoptysis while on anticoagulation. Monitor HR with IVF. (2) Pre-syncope: Status: Acute Assessment and plan: Likely due to sypmtomatic rapid Afib/flutter. Continue to monitor on tele. As above. (3) Depression with anxiety: Status: Chronic Assessment and plan: Will need outpatient follow up. (4) Adrenal adenoma: Status: Chronic Assessment and plan: Urine/serum metanephrines ruled out an active adrenal adenoma. Follow up as outpatient. (5) Obesity: Status: Chronic Assessment and plan: Will need a sleep study (6) Hemoptysis: Status: Acute Assessment and plan: scant, occured x1. PE ruled out. Continue to monitor for recurrence - for now, continue xarelto. (7) Discharge planning issues: Status: Acute Assessment and plan: Full code. Accepted for transfer at [facility] by Dr Wilmer Gordillo. (8) DVT prophylaxis: Status: Acute Assessment and plan: On therapeutic xarelto Subjective Subjective Interval history since last seen: Mostly in 2:1 flutter. Not symptomatic this am. Remains in 120's. Denies dizziness, chest pain, shortness of breath, nausea this morning. Thinks he will get dizzy if he tries to get up. Accepted at [facility] By Dr Gordillo of cardiology Exam Narrative Exam Narrative: General: very pleasant obese male, mildly anxious, A&Ox3 HEENT: EOMI, MMM Heart: RRR, no m/r/g, tachycardic Lungs: CTAB GI: abdomen is soft, nontender, nondistended Extremities: no e/c/c BLE's, 1+ pedal pulses B Objective Objective Clinical Data: Abnormal lab results 06/02/19 06/02/19 06/02/19 Range/Units 12:16 12:16 12:16 Hgb 18.4 H (13.5-17.5) g/dL Hct 52.2 H (40.0-50.0) % Absolute Neutrophils 8.06 H (1.2-6.7) k/cumm PT 12.1 H (9.3-11.0) sec INR 1.2 H (0.9-1.1) APTT 32.6 H (21.0-31.4) sec Anion Gap 13.4 H (3-11) mmol/L Creatinine 1.42 H (0.70-1.30) mg/dL Glucose 107 H (70-100) mg/dL Total Bilirubin 1.3 H (0.2-1.0) mg/dL Total Protein 8.3 H (6.4-8.2) g/dL TSH 6.71 H (0.36-3.74) uIU/mL Vital Signs Temperature 36.6 C 06/03/19 04:00 Temperature Source Temporal Artery Scan 06/03/19 04:00 Pulse 116 H 06/03/19 06:00 Pulse 117 H 06/03/19 06:00 Respiratory Rate 13 06/03/19 06:00 Respiratory Effort Non-Labored 06/03/19 04:00 Respiratory Depth Normal 06/03/19 04:00 Respiratory Pattern Normal 06/03/19 04:00 Blood Pressure 137/100 H 06/03/19 06:00 Blood Pressure Mean 109 06/03/19 06:00 Blood Pressure Position Sitting 06/02/19 12:07 Pulse Oximetry 97 06/03/19 04:00 Oxygen Delivery Method Room Air 06/03/19 04:00 Oxygen Flow Rate 0 06/03/19 04:00 Pain Level 0 06/03/19 04:00 Intake & Output 06/02/19 06/02/19 06/03/19 11:59 23:59 11:59 Intake Total 2900 / 2900 400 / 400 Output Total 1250 / 1250 Balance 2900 / 2900 -850 / -850 Weight 120.6 kg 115.2 kg Intake: IV 1999 Oral 900 / 900 400 / 400 Output: Urine 1250 / 1250 Other: Urine Color Light Sherlyn Urine Appearance Clear Urine Odor Normal Voiding Methods Urinal Laboratory Results WBC 9.92 k/cumm (4.4-10.8) 06/02/19 12:16 RBC 5.79 m/cumm (4.50-6.00) 06/02/19 12:16 Hgb 18.4 g/dL (13.5-17.5) H 06/02/19 12:16 Hct 52.2 % (40.0-50.0) H 06/02/19 12:16 MCV 90.2 fL (80-95) 06/02/19 12:16 MCH 31.8 pg (27.0-33.0) 06/02/19 12:16 MCHC 35.2 g/dL (32.0-36.0) 06/02/19 12:16 RDW 13.3 % (11.8-14.1) 06/02/19 12:16 Plt Count 358 x1000/uL (130-400) D 06/02/19 12:16 MPV 9.9 fL (8.0-11.0) 06/02/19 12:16 Immature Gran % 0.3 06/02/19 12:16 Neutrophils % 81.3 06/02/19 12:16 Lymphocytes % 12.5 06/02/19 12:16 Monocytes % 5.1 06/02/19 12:16 Eosinophils % 0.6 06/02/19 12:16 Basophils % 0.2 06/02/19 12:16 Absolute Neutrophils 8.06 k/cumm (1.2-6.7) H 06/02/19 12:16 Absolute Lymphocytes 1.24 k/cumm (1.2-3.4) 06/02/19 12:16 Absolute Monocytes 0.51 k/cumm (0.11-0.7) 06/02/19 12:16 Absolute Eosinophils 0.06 k/cumm (0.0-0.7) 06/02/19 12:16 Absolute Basophils 0.02 k/cumm (0.0-0.2) 06/02/19 12:16 PT 12.1 sec (9.3-11.0) H 06/02/19 12:16 INR 1.2 (0.9-1.1) H 06/02/19 12:16 APTT 32.6 sec (21.0-31.4) H 06/02/19 12:16 Sodium 143 mmol/L (136-145) 06/02/19 12:16 Potassium 3.8 mmol/L (3.5-5.1) 06/02/19 12:16 Chloride 104 mmol/L (98-107) 06/02/19 12:16 Carbon Dioxide 25.6 mmol/L (21.0-32.0) 06/02/19 12:16 Anion Gap 13.4 mmol/L (3-11) H 06/02/19 12:16 BUN 16 mg/dL (7-18) 06/02/19 12:16 Creatinine 1.42 mg/dL (0.70-1.30) H 06/02/19 12:16 Estimated GFR/1.73 m2 52.35 (mL/min/1.73m2) 06/02/19 12:16 Glucose 107 mg/dL (70-100) H 06/02/19 12:16 Calcium 9.7 mg/dL (8.5-10.1) 06/02/19 12:16 Magnesium 2.0 mg/dL (1.8-2.4) 06/02/19 12:16 Total Bilirubin 1.3 mg/dL (0.2-1.0) H 06/02/19 12:16 AST 33 U/L (15-37) 06/02/19 12:16 ALT 42 U/L (16-63) 06/02/19 12:16 Alkaline Phosphatase 101 U/L (46-116) 06/02/19 12:16 Troponin I < 0.05 ng/mL (0.00-0.06) 06/02/19 15:25 Total Protein 8.3 g/dL (6.4-8.2) H 06/02/19 12:16 Albumin 4.3 g/dL (3.4-5.0) 06/02/19 12:16 TSH 6.71 uIU/mL (0.36-3.74) H 06/02/19 12:16 Free T4 1.03 ng/dL (0.76-1.46) 06/02/19 12:16 EKG: HR 121, Aflutter with 2:1 conduction, nonspecific ST-T changes
[2019-06-03 08:24] LABS: HCT 47.8 % (40.0-50.0); Mean Corp. HGB Concentration 35.6 g/dL (32.0-36.0); Mean Corpuscular Hemoglobin 32.4 pg (27.0-33.0); Mean Corpuscular Volume 91.2 fL (80-95); Mean Platelet Volume 9.8 fL (8.0-11.0); Platelet Count 301 x1000/uL (130-400); RBC 5.24 m/cumm (4.50-6.00); RBC Distribution Width 13.2 % (11.8-14.1)
[2019-06-03 09:02] LABS: Anion Gap 9.2 mmol/L (3-11); BUN 13 mg/dL (7-18); CO2 30.8 mmol/L (21.0-32.0); CREATININE 1.15 mg/dL (0.70-1.30); Chloride 104 mmol/L (98-107); Glucose 99 mg/dL (70-100); Potassium 3.5 mmol/L (3.5-5.1); Sodium 144 mmol/L (136-145)
[2019-06-03 09:03] LABS: Troponin I < 0.05 ng/mL (0.00-0.06)
--- NOTE | 2019-06-03 09:18 | PDOC.CMIN ---
Care Management Initial Assess REASON FOR HOSPITALIZATION:: Aflutter PAST MEDICAL HISTORY/PAST SURGICAL HISTORY:: Atrial fibrillation, colon polyps, GERD, hemorrhoids, hyperlipidemia, hypertension, metabolic syndrome, colonoscopy - IV sedation - 2001, 2007, s/p ablation of atrial fibrillation x 2, ORIF, fracture, tonsillectomy 208 n/l. PREVIOUS FUNCTIONAL STATUS/SOCIAL/FAMILY SUPPORTS:: Rohit reports he is reconnected with his . He had plans of relocating to [place], but has remained in [place] at this time, and reports he intends on moving with her as she has relocated [facility]. He lost his son four years ago to an apparent suicide. 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 CURRENT FUNCTIONAL STATUS:: Rohit reports feeling angry at the ongoing medical issues he is experiencing. He reports he and his are making amends and she is flying in to [place] on Wednesday to be with him. He is agreeable to transfer and has been accepted. Rohit speaks in length about his previous business and how he slept very little and did not take care of himself. He reports he has cut out soda, cigars and caffeine including coffee as well as unhealthy foods and has lost forty pounds in the last few months. Has patient been provided with information about the portal?: Yes Did the patient sign up for the portal?: Yes (Previously) CODE STATUS:: Full Code INSURANCE COVERAGE / FINANCIAL ISSUES:: BC/BS CURRENT HOME/COMMUNITY SERVICES/EQUIPMENT:: No current services. PRIMARY CARE PHYSICIAN:: Maco Santana MD POTENTIAL DISCHARGE NEEDS:: Anticipate possible transfer to [facility], discussion of possible psych consult. PATIENT/FAMILY EDUCATION NEEDS:: Review of discharge instructions, discuss current living situation and review community based supports regarding concern for adjustment disorder. ANTICIPATED BARRIERS TO DISCHARGE:: None identified. TRANSPORTATION:: Via private vehicle with a friend. PLAN:: Transfer to [facility]. Readmission - Within the Past 30 Days Yes or No: Y - Date of First Admission Date of 1st Admission: 05/18/19 - Date of this Admission Date of Admission: 06/02/19 This admission was: Through ED - Office Visit Since 1st Admission Have you seen your PCP in the office since discharge?: Yes Had an appointment Been Scheduled?: No Date of Scheduled Appointment: PCP 06/02/19-unscheduled Describe barriers for scheduling or getting an appointment: Charo Miller: CCC note from 05/29/19: Patient evaluated at [facility] ED on 05/26/19 with c/o pain and redness left forearm at site of previous IV insertion (recent discharge from [facility]). Diagnosed with cellulitis and given RX for Keflex. Chart makes note of patient plan to relocate to [place] this week. [facility] spoke to Rohit this morning and he states that he is just leaving his cardiology appointment at [facility]. He affirms plan to relocate and does not wish to make a follow up appointment at [facility] at this time. - Speicalist Appointments Have you seen any other specialist since your 1st Admission?: Yes Date you saw the Specialist: 05/29/19 [facility] Cardiology - I. Interview patient and/or Family Difficulty reaching your doctor or getting an office appt?: No Have you had trouble purchasing/ or taking medication?: No Have you had trouble with getting meals at home?: No Did you feel ready for discharge when you left the last time: Yes Were services received that you thought were set up on disch: Yes If patient did not receive services, were there orders at: No What were the barriers for not receiving services?: Rohit declined follow up as he reported he was relocating to [place]. Reason there were no orders at discharge: Rohit declined follow up as he reported he was relocating to [place]. Did you call your physician beore you came to the ED?: No Did your physician tell you to come in?: No (Arrived at PCP ) - If the patient had a VNA ordered Did the patient have a VNA order?: No - ED visits How many ED visits in the past 12 months: 3 (Since 05/18) - Assessment for Readmission Summary of readmission circumstances, based upon interviews: Rohit declined follow up as he reported he was relocating to [place]. Continuation of symptoms with possible psychological component.
--- NOTE | 2019-06-03 15:14 | DSE_ITS ---
Date of service: 06/03/19 Time of Service: 15:14 DS: Diagnosis Discharge Diagnosis (1) Atrial fibrillation and flutter: Status: Acute Asessment and Plan: With refractory RVR (2) Pre-syncope: Status: Acute Asessment and Plan: Due to symptomatic Afib/flutter (3) Hemoptysis: Status: Acute Asessment and Plan: scant, while on anticoagulation with xarelto, happened x1 (4) Depression with anxiety: Status: Chronic (5) Adrenal adenoma: Status: Chronic Asessment and Plan: normal serum and urine metanephrines (6) Obesity: Status: Chronic Discharge Plan Disposition Patient Disposition: [facility] Condition: Fair Discharge Details Chief Complaint: Palpitatns Clinical Impression: Atrial flutter, BRBPR (bright red blood per rectum), Syncope Reason For Visit: AFLUTTER Admit Date/Time: 06/02/19 18:30 Admit Provider: Derrek Barton Attending Provider: Derrek Barton Primary Care Provider: Maco Santana ED Provider: Reggie Brito Hospital Course Hospital Course: Mr Peter is a 53 year old male with PMHx of Atrial fibrillation, s/p several ablations and cardioversions, most recently ablated on 05/10/19 at [facility] and cardioverted at [facility] on 05/24/19, who was admitted to [facility] ICU on 06/02/19 after a near-syncopal episode in setting of symptomatic rapid ventricular rate. Evidently, the patient went to see his PCP yesterday morning after his near syncopal episode, in addition to having had an episode of scant hemoptysis, was noted to have a HR in 180's, and was sent to ED, where his HR was in 120's, but he was noted to be in Aflutter with 2:1 conduction. He was placed on verapamil 80 mg PO TID instead of his cardizem CD 240 mg daily and maintained on amiodarone 400 mg PO daily. The rates remain in 120's. I discussed the case with Dr Wilmer Gordillo of cardiology at [facility], where the patient is known. The patient was accepted in transfer to [facility] for further electrophysiology evaluation and treatment which we are not able to provide at [facility]. The patient is in agreement with transfer and is medically stable for transfer. Care for patient as well as completion of his transfer paperwork took 1 hour on the day of transfer. Home Meds and New Rx's Prescriptions: No Action multivitamin 1 EACH tablet 1 ea PO DAILY RF: 0 glxxjqae-iltw-tohrfi-hyalur ac 1 EACH capsule 2 cap PO DAILY RF: 0 Xarelto 20 MG tablet 20 mg PO .WITH SUPPER RF: 0 pantoprazole 40 mg tablet,delayed release (DR/EC) 40 mg PO DAILY RF: 0 diltiazem HCl 240 mg tablet extended release 24 hr 240 mg PO AC RF: 0 amiodarone 200 mg tablet See Rx Instructions .ROUTE .COMPLEX Qty: 70 RF: 0 cephalexin [Keflex] 500 mg capsule 500 mg PO QID 10 Days Qty: 40 RF: 0 Discharge Instructions Activity:: OOB to chair Equipment/Supplies:: No Equipment Needed Diet:: heart healthy Discharge Orders Discharge Orders: Discharge Order (Routine); Ordered 06/03/19 Ordered By: Mercedes Mayorga DS: Summary Status at Discharge Functional status at discharge: independent ambulation Overall status at discharge: patient is not back to baseline Mental Status: mental status grossly normal Speech and Movement: speech and movement normal Mood: anxious mood Affect: anxious affect Exam Narrative Exam Narrative: General: very pleasant obese male, mildly anxious, A&Ox3 HEENT: EOMI, MMM Heart: RRR, no m/r/g, tachycardic Lungs: CTAB GI: abdomen is soft, nontender, nondistended Extremities: no e/c/c BLE's, 1+ pedal pulses B Psych Mental Status: mental status grossly normal Speech and Movement: speech and movement normal Mood: anxious mood Affect: anxious affect DS: Data Vitals/I&O Vitals and I&O: Vital Signs Temperature 36.7 C 06/03/19 12:23 Temperature Source Temporal Artery Scan 06/03/19 12:23 Pulse 121 H 06/03/19 14:13 Pulse 121 H 06/03/19 14:13 Respiratory Rate 20 06/03/19 14:13 Respiratory Effort Non-Labored 06/03/19 12:23 Respiratory Depth Normal 06/03/19 12:23 Respiratory Pattern Normal 06/03/19 12:23 Blood Pressure 166/89 H 06/03/19 14:13 Blood Pressure Mean 108 06/03/19 14:13 Blood Pressure Position Sitting 10/05/19 12:23 Pulse Oximetry 97 06/03/19 08:20 Oxygen Delivery Method Room Air 06/03/19 12:23 Oxygen Flow Rate 0 06/03/19 12:23 Pain Level 0 06/03/19 12:23 Intake & Output 06/02/19 06/03/19 06/03/19 23:59 11:59 23:59 Intake Total 2900 / 2900 400 / 1322.5 922.5 / 1322.5 Output Total 1750 / 2525 775 / 2525 Balance 2900 / 2900 -1350 / -1202.5 147.5 / -1202.5 Weight 120.6 kg 115.2 kg Intake: IV 1999 922.5 / 922.5 Oral 900 / 900 400 / 400 Output: Urine 1750 / 2525 775 / 2525 Other: Urine Color Pale Pale Yellow Urine Appearance Clear Clear Urine Odor None None Stool Characteristics Soft Formed Voiding Methods Urinal Data Completed and Pending Completed studies during hospitalization [Text1]: CTA chest 06/02/19: No evidence of pulmonary embolic disease or other acute thoracic abnormality Labs on day of discharge: Labs from last 24 hours 06/03/19 06/03/19 06/02/19 08:00 08:00 15:25 WBC 7.60 RBC 5.24 Hgb 17.0 Hct 47.8 MCV 91.2 MCH 32.4 MCHC 35.6 RDW 13.2 Plt Count 301 MPV 9.8 Sodium 144 Potassium 3.5 Chloride 104 Carbon Dioxide 30.8 Anion Gap 9.2 BUN 13 Creatinine 1.15 Estimated GFR/1.73 m2 >= 60.00 Glucose 99 Calcium 9.0 Magnesium 2.0 Troponin I < 0.05 < 0.05 [facility] Medical History Atrial fibrillation (Chronic) Atrial fibrillation (Chronic) Colon polyps GERD (gastroesophageal reflux disease) Hemorrhoids Hyperlipidemia Hypertension Metabolic syndrome Obesity (BMI 30-39.9) Surgical History Colonoscopy - IV Sedation 2001, 2007-[facility] S/P ablation of atrial fibrillation (Acute) x2 S/P ORIF (open reduction internal fixation) fracture (Acute) Tonsillectomy 208 n/l Social History Smoking/Tobacco Use Status: Former Tobacco Use Alcohol Intake: current Alcohol Intake frequency: holidays/special occasions only Alcohol type: beer Drug use: Never Substance use type: does not use Current gender identity: male Do you feel safe at home: Yes Do you feel safe in your relationship?: Yes
--- NOTE | 2019-06-03 15:20 | NUR.NOTE ---
transfer report given to RUDY Olivas at [facility]. Pt going to [address], [address].
[2019-06-03] MEDS: Amiodarone 200 MG TAB 400 MG PO (17:45)
[2019-06-03] MEDS: Rivaroxaban 10 MG TABLET 20 MG PO (17:46)
== END 2019-06-03 18:20 ==
LOC: ER 19:06 → ICU 19:47
PROVIDERS: Physician Assistant; Admitting Provider General Practice; Emergency Provider Student in an Organized Health Care Education/Training Program; PCP Emergency Medicine; Visit Provider Internal Medicine
DX: I48.92 Unspecified atrial flutter (principal); I48.20 Chronic atrial fibrillation, unspecified; R55 Syncope and collapse; Z79.01 Long term (current) use of anticoagulants; R04.2 Hemoptysis; F41.8 Other specified anxiety disorders; D35.00 Benign neoplasm of unspecified adrenal gland; E66.9 Obesity, unspecified; Z68.35 Body mass index [BMI] 35.0-35.9, adult; K21.9 Gastro-esophageal reflux disease without esophagitis; E78.5 Hyperlipidemia, unspecified; I10 Essential (primary) hypertension; Z98.890 Other specified postprocedural states
CPT/HCPCS: 36415; 71275; 80048; 80053; 85027; 93005; 96361; 96374; 99222; 99233; 99239; 99285; 83735; 84439; 84443; 84484; 85025; 85610; 85730; 93010; 99217; 99218; G0378; J2060

== ENCOUNTER 2020-04-19 01:35 | Outpatient (CLI) | payer BC, SELFPAY ==
[2020-04-19 12:46] LABS: Calculated LDL 143 mg/dL (<100); Cholesterol 213 mg/dL (<200); HDL Cholesterol 57 mg/dL (40-60); Triglyceride 68 mg/dL (<150)
== END 2020-04-19 01:55 ==
PROVIDERS: PCP Emergency Medicine; Visit Provider Family Medicine
DX: I10 Essential (primary) hypertension (principal)
CPT/HCPCS: 80061

== ENCOUNTER 2020-04-19 01:48 | Outpatient (CLI) | payer BC, SELFPAY ==
[2020-04-20 14:51] LABS: COVID-19 RT-PCR Result NEGATIVE (Negative)
== END 2020-04-19 02:08 ==
PROVIDERS: PCP Emergency Medicine; Visit Provider Surgery
DX: Z11.59 Encounter for screening for other viral diseases (principal); Z01.818 Encounter for other preprocedural examination
CPT/HCPCS: U0003

== ENCOUNTER 2020-04-22 10:14 | Day surgery (SDC) | payer BC, SELFPAY ==
--- NOTE | 2020-04-22 06:43 | W.COLOREPORT ---
Date of service: 04/22/20 Time of Service: 11:45 Colonoscopy Report Date of procedure: 04/22/20 Pre-op diagnosis general: Hx of colon polyps Post-op diagnosis procedure note: other (polyps, mild diverticulosis and internal hemorrhoids) Procedure: Colonoscopy with polypectomy Surgeon: Lucy Deluna Anesthesia proc note operative: other (General/ ASA 3/Derrek Callahan, SILKE) Estimated blood loss (mL): 3 Pathology: other (Descedning polyp, sigmoid polyp x2) Complications: None Disposition: same day Indications: The patient is here for Colonoscopy pre-op. His last screening was in 2014 and was remarkable for tubular adenoma. He has no family history of colon cancer. He has not had any bowel habit changes. -Discussed colonoscopy bowel prep as well as the procedure. Discussed possible complications of the procedure to include bleeding, pain, perforation, missed small lesion/polyp, sore throat, aspiration and adverse reaction to the medications. Questions were answered to patient?s satisfaction. No guarantees were implied or given. Prep: Miralax/Dulcolax Procedure Start Time: 11:45 Procedure End Time: 12:10 Retraction Time: 17 minutes Findings: 3 small polyps, mild diverticulosis and Grade 2 internal hemorrhoids Procedure Description: After informed consent was obtained the patient was taken to the procedure room and placed in a left decubitous position. Monitors were applied and a time out was done. The patients name, date of , procedure, allergies to medications and metal in their body was reviewed. The patient was then sedated. Once sedated and comfortable a rectal exam was done. External exam was normal. Internal exam revealed a normal sphincter tone and no palpable masses. The prostate felt smooth. The scope was then introduced and retro-flexed. Grade 2 internal hemorrhoids were identified. The scope was then advanced to the cecum without difficulty. The ileocecal valve and appendiceal orifice were identified. The prep was adequate. The scope was then slowly retracted over 17 minutes back into the rectum. Polyps were removed with cold forceps in the descending colon and in the sigmoid colon x2. There was mild diverticulosis of the descending colon and sigmoid colon. The scope was removed and the patient was woken up and taken back to Same day surgery in stable condition. The patient tolerated the procedure well and there were no immediate complications. Follow up: The patient should follow up in 3-5 years unless they develop changes in bowel habits or other new gastrointestinal complaints.
--- NOTE | 2020-04-22 06:44 | W.PM.DSUDISC ---
Discharge Plan Disposition Patient Disposition: HOME Condition: Good Discharge Details Reason For Visit: Colonoscopy Attending Provider: Lucy Deluna Primary Care Provider: Maco Santana Home Meds and New Rx's Prescriptions: Continued psyllium Packet 1 packet PO BID RF: 0 multivitamin 1 EACH tablet 1 ea PO DAILY RF: 0 yvgkbrrx-gvkj-anrszz-hyalur ac 1 EACH capsule 2 cap PO DAILY RF: 0 Xarelto 20 MG tablet 20 mg PO .WITH SUPPER RF: 0 Discontinued bisacodyl [Dulcolax (bisacodyl)] 5 mg tablet,delayed release (DR/EC) 5 mg PO ONCE Qty: 4 RF: 0 polyethylene glycol 3350 17 gram/dose powder 238 g PO ONCE Qty: 238 RF: 0 No Action calcium carbonate [Tums] 200 mg calcium (500 mg) Tablet,Chewable 200 - 400 mg PO TID PRNRF: 0 lisinopril 10 mg tablet 10 mg PO HS RF: 0 Discharge Instructions Instructions: Colorectal Polyps (DC), Hemorrhoids (DC), Diverticulosis (DC) Additional Instructions: Findings: 3 small polyps Diverticulosis Internal hemorrhoids (most likely source of bleeding) Follow up: 3-5 years Please call if you develop: fevers >101.5 Nausea or Vomiting Abdominal pain that is not transient DAY SURGERY UNIT POST ENDOSCOPY INSTRUCTIONS 1. Because there will be medication in your system for the next 24 hours, you may feel a little sleepy. Your coordination will be affected. Therefore: a. Do not drive or operate dangerous equipment for 24 hours. b. Do not drink alcohol beverages for 24 hours (not even beer). c. Plan to go home and rest for the day. 2. Generally there are no restrictions on your activity after a day or so has gone by, but you may feel a bit fatigued for a few days. 3 After you arrive home you may have a light meal and return to a normal diet as you can tolerate it without feeling sick to your stomach. 4. After surgery, you may feel pain or discomfort. This should be only transient, but if it persists please contact your doctor. 5. If there are any questions regarding the findings of your procedure, please feel free to contact your doctor. 6. If you are unable to contact your doctor with a problem, contact the hospital at [phone]. 7. Continue all your regular medications unless directed otherwise. I understand the above instructions and have no questions. Signature of Patient or Responsible Adult Escort Date/Time Name of Responsible Adult Escort Signature of Nurse Date/Time Activity:: Activity as Tolerated Diet:: High Fiber Discharge Orders Discharge Orders: Discharge Order (Routine); Ordered 04/22/20 Ordered By: Lucy Deluna
[2020-04-22 10:20] VITALS: BP 150/101; PULSE 63; RESP 16; TEMP 36.2; O2SAT 97
[2020-04-22] MEDS: Lactated Ringers 1,000 ML 80 ML IV (10:55)
--- NOTE | 2020-04-22 12:03 | BOWEL_PTH ---
PATIENT: Rohit Peter LOC: [facility] U#:[id number] AGE/SX: 54/M ROOM: RE04/22/[address]: Lucy Deluna MD : 1965 BED: DIS: 04/22/2020 SPEC #: [id number] RECD: 04/22/20 12:53 STATUS: CORDELIA REQ #: [id number] ROSETTA: 04/22/20 12:[address]: Lucy Deluna DEPT: Surgical Specimen RECD BY: Dorothy Rowe ENTERED: 04/22/20 12:53 SP TYPE: Bowel OTHR DR: Maco Santana DO Tissues: 1 - BIOPSY BOWEL 2 - BIOPSY BOWEL Procedures: GROSS AND MICRO LEVEL 4 Comments: [id number]
[2020-04-22 12:45] VITALS: BP 130/78; PULSE 52; RESP 18; TEMP 36.5; O2SAT 99
== END 2020-04-22 13:05 | disposition home or self-care (01) ==
LOC: SUR 10:14
PROVIDERS: PCP Emergency Medicine; Visit Provider Surgery
PROC: 0DJD8ZZ Inspection of Lower Intestinal Tract, Via Natural or Artificial Opening Endoscopic (ICD-10-PCS; CPT 45378; principal; 2020-04-22 10:45)
DX: Z12.11 Encounter for screening for malignant neoplasm of colon (principal); Z86.010 Personal history of colon polyps; K57.30 Diverticulosis of large intestine without perforation or abscess without bleeding; K64.1 Second degree hemorrhoids; D12.4 Benign neoplasm of descending colon; K63.5 Polyp of colon
CPT/HCPCS: 45380; 88305; J2001

== ENCOUNTER 2021-03-19 08:22 | Outpatient (CLI) | payer BC, SELFPAY ==
--- OUTSIDE RECORDS SUMMARY | 2021-03-19 08:30 | XMS_ITS | Continuity of Care Document ---
:1965 Author Organization [facility] [address] [address]- Encounter 07/19/19 - 07/21/[address] FAX: [phone] [place] [address]- [facility] Encounter Diagnosis Encounter for drug screening (Discharge Diagnosis) - 07/19/19 Problem List Diagnosis Diagnosis Type Effective Dates Health Status Clinical In formant Service Encounter for Discharge 07/19/19 Non-Specified drug screening Diagnosis
--- OUTSIDE RECORDS SUMMARY | 2021-03-19 08:30 | XMS_ITS ---
:1965 External Reference #:[id number] Author Care Team Providers Name Role Phone Tara Cramer Primary Care Provider Unavailable Allergies None recorded. Medications Name Status Start Date Stop Date ? ? Cartia XT 180 mg capsule,extended release Active ? Not available Cartia XT 240 mg capsule,extended release Active ? Not available Equate Active ? Not available 50mg Notes: Mens 1 aday 50+ b12 osteobiflex for past joint problems and pain Problems None recorded. Procedures Date Name Performed by ? 08/30/2016 Colonoscopy Information not avai lable 04/30/2000 Cardiac Surgery Information not avai lable ? Ear Tube Information not avai lable ? Hernia Repair Information not avai lable ? Other Information not avai lable Results Lab Results None recorded. Past Encounters None recorded. Social History Tobacco Smoking Status Former Smoker Vaccine List None recorded. Plan of Care Reminders Provider Appointments None ? ? recorded. Lab None ? ? recorded. Referral None ? ? recorded. Procedures None ? ? recorded. Surgeries None ? ? recorded. Imaging None ? ? recorded. Vitals 05/31/2017 12:00PM ESTABLISHED PATIENT 30 Height Weight BMI Blood Pressure 5 ft 10 in 287 lbs 16 oz 41.3 kg/m2 140/100 mm[Hg] 04/28/2017 10:45AM ESTABLISHED PATIENT 30 Height Weight BMI 5 ft 10 in 286 lbs 16 oz 41.2 kg/m2 04/13/2017 10:15AM ESTABLISHED PATIENT 90 Height Weight BMI Blood Pressure 5 ft 10 in 290 lbs 41.6 kg/m2 150/80 mm[Hg]
--- OUTSIDE RECORDS SUMMARY | 2021-03-19 08:30 | XMS_ITS | Continuity of Care Document ---
:1965 Author Organization [facility] [address] [address]- Encounter 07/19/19 - 07/21/[address] FAX: [phone] [place] [address]- [facility] Encounter Diagnosis Encounter for drug screening (Discharge Diagnosis) - 07/19/19 Problem List Diagnosis Diagnosis Type Effective Dates Health Status Clinical In formant Service Encounter for Discharge 07/19/19 Non-Specified drug screening Diagnosis
[2021-03-19 15:47] LABS: Anion Gap 9.8 mmol/L (3-11); BUN 18 mg/dL (7-18); CO2 27.2 mmol/L (21.0-32.0); CREATININE 1.1 mg/dL (0.70-1.30); Calcium 8.8 mg/dL (8.5-10.1); Calculated LDL 143 mg/dL (<100); Chloride 108 mmol/L (98-107); Cholesterol 250 mg/dL (<200); Glucose 94 mg/dL (74-106); HDL Cholesterol 59 mg/dL (40-60); Potassium 4.1 mmol/L (3.5-5.1); Sodium 145 mmol/L (136-145); Triglyceride 240 mg/dL (<150)
[2021-03-19 22:16] LABS: PSA, Screening 0.4 ng/mL (0.0-3.5)
== END 2021-03-19 08:23 | disposition home or self-care (01) ==
LOC: LBO 08:28
PROVIDERS: PCP Emergency Medicine; Visit Provider Emergency Medicine
DX: I10 Essential (primary) hypertension (principal); Z12.5 Encounter for screening for malignant neoplasm of prostate
CPT/HCPCS: 36415; 80048; 80061; 84153